=== PATIENT | female | born 1995 | race Caucasian/White ===

== ENCOUNTER → 2016-10-18 | Outpatient (REF) | payer OTHER | END | disposition home or self-care (01) | LOC: M LAB REF 12:41 | PROVIDERS: ATTEND Obstetrics & Gynecology | DX: Z12.4 Encounter for screening for malignant neoplasm of cervix (principal) ==

== ENCOUNTER 2016-11-13 21:15 | Emergency (ER) | payer OTHER ==
[2016-11-13] MEDS ORDERED: KETOROLAC 30 MG/ML VIAL (J1885) As Ordered ONE (22:25)
[2016-11-13] MEDS ORDERED: METOCLOPRAMIDE INJ 10MG/2ML VIAL (J2765) As Ordered ONE (22:25)
[2016-11-13] MEDS ORDERED: diphenhydrAMINE INJ 50MG/ML VIAL (J1200) As Ordered ONE (22:25)
--- NOTE | 2016-11-14 | REPUSA ---
CLINICAL HISTORY: Headaches. TECHNIQUE: Multiple axial brain CT scan sections were obtained from base to vertex without contrast a dministration. COMMENTS: The study shows normal configuration of sella turcica. There are no intra or extra-axial collections. There is no mass effect or midline shift. There is no evidence of hematoma formation. No hydrocephal us is present. No abnormal calcifications are noted. No significant abnormalities are seen either in the posterior fossa or supratentorial compartment. The sinuses and mastoid air cells are patent. IMPRESSION: No evidence of acute intracranial pathology. Thank you for your kind referral of this patient.
--- NOTE | 2016-11-14 00:55 | EDDOCDS ---
Physician Documentation [facility] Name: Adalberto Alexander Age: 21 yrs Sex: Female : 1995 Arrival Date: 11/13/2016 Time: 21:15 Bed 4 Private MD: Beth Ramírez Disposition: 11/14/16 00:42 Discharged to Home/Self Care. Impression: Migraine without aura, not intractable. - Condition is Stable. - Discharge Instructions: Migraine Headache. - Medication Reconciliation, Local Pharmacy Hours form. - Follow up: Malcolm Flowers; When: Call to arrange an appointment; Reason: Continuance of care. - Problem is an acute exacerbation. - Symptoms have improved. Historical: - Allergies: BACLOFEN; Duloxetine; Lyrica; Pennsaid; Fluconazole; Imitrex; SUMATRIPTAN; rizatriptan; Doxycycline; Depakote; clarithromycin; Miconazole Nitrate; Savella; brie cheese; - Home Meds: 1. 5000 NF toothpaste 2. medroxyprogesterone 10 mg Oral tab 1 tab once daily 1 daily for 10 days in a month 3. Vitamin D Oral weekly 4. allergy shots 5. cetirizine 10 mg oral tab 1 tab once daily 6. montelukast 10 mg oral tab 1 tab once daily 7. Miralax 17 gram Oral pwpk 1 packet once daily - PMHx: Fibromyalgia; Seasonal Allergies; Glaucoma; IBS; - PSHx: wisdom teeth; Laparoscopy; Tonsillectomy; - Social history: Smoking status: Patient states was never smoker of tobacco. No barriers to communication noted, The patient speaks fluent Greenlandic. - Family history: Father has/had cancer, brain tumor . - : The pt / caregiver states he / she is not on anticoagulants. Home medication list is obtained from the patient. - Exposure Risk Screening:: None identified. Vital Signs: 11/13 21:18 BP 108 / 67; Pulse 100; Resp 18 S; Temp 98.1(O); Pulse Ox 98% on R/A; Weight 54.43 kg / gr2 120 lbs (R); Height 5 ft. 4 in. (162.56 cm) (R); Pain 5/10; 22:18 BP 105 / 59 (auto/); mlc 22:18 Pulse 86 MON; Pulse Ox 99% ; mlc 22:33 BP 113 / 63 (auto/); mlc 22:33 Pulse 80 MON; Pulse Ox 99% ; mlc 22:47 Pulse 80 MON; Pulse Ox 98% ; mlc 22:48 BP 108 / 61 (auto/); mlc 23:03 BP 107 / 59 (auto/); mlc 23:04 Pulse 86 MON; Pulse Ox 99% ; mlc 23:18 BP 91 / 54 (auto/); mlc 23:19 Pulse 80 MON; Pulse Ox 99% ; mlc 23:33 BP 93 / 53 (auto/); mlc 23:34 Pulse 76 MON; Pulse Ox 97% ; mlc 23:48 BP 97 / 54 (auto/); mlc 23:49 Pulse 78 MON; Pulse Ox 97% ; mlc 11/14 00:18 BP 92 / 55 (auto/); mlc 00:19 Pulse 78 MON; Pulse Ox 97% ; mlc 00:31 Pulse 78 MON; Pulse Ox 97% ; mlc 00:50 BP 93 / 50 LA Supine (auto/reg); Pulse 82 MON; Resp 18 S; Temp 97.7; Pulse Ox 98% on cln R/A; Pain 0/10; 11/13 21:18 Body Mass Index 20.60 (54.43 kg, 162.56 cm) gr2 MDM: 11/13 22:14 IV Saline Lock ordered. mm11 22:14 ketorolac 30 mg IVP once ordered. mm11 22:14 diphenhydrAMINE 25 mg IVP once ordered. mm11 22:14 Metoclopramide 10 mg IV at 40 mg/hr once over 15 mins ordered. mm11 22:14 NS 0.9% 1000 ml IV at bolus once ordered. mm11 22:16 CT Head Without Contrast Ordered. EDMS 22:30 Financial registration complete. mickey 22:45 [facility] [place] Agreement was scanned into [employer] and attached to record. gjb Administered Medications: 22:48 Drug: ketorolac 30 mg [ketorolac 30 mg/mL (1 mL) injection solution (1 mL)] Route: IVP; mlc Site: left antecubital; 23:20 Follow up: Response: Pain is decreased mlc 22:48 Drug: diphenhydrAMINE 25 mg [diphenhydramine 50 mg/mL injection solution (0.5 mL)] mlc Route: IVP; Site: left antecubital; 23:21 Follow up: Response: No Adverse Reaction mlc 22:48 Drug: Metoclopramide 10 mg [metoclopramide 5 mg/mL injection solution] Route: IV; Rate: mlc 40 mg/hr; Infused Over: 15 mins; Site: left antecubital; 23:20 Follow up: IV Status: Completed infusion mlc 22:48 Drug: NS 0.9% 1000 ml [sodium chloride 0.9 % intravenous solution] Route: IV; Rate: mlc bolus; Site: left antecubital; Signatures: Dispatcher MedHost EDOswald Alexander, DO mm11 Marla Hightower RN RN mlc Fulton, Amber, RN RN af2 Sonia Corbin The chart was reviewed and I authenticate all verbal orders and agree with the evaluation and treatment provided.Attachments: 22:45 [facility] Payment Agreement mickey [email or web address]
--- NOTE | 2016-11-14 00:55 | EDDOCDS ---
Nurse's Notes [facility] Name: Adalberto Alexander Age: 21 yrs Sex: Female : 1995 Arrival Date: 11/13/2016 Time: 21:15 Bed 4 Private MD: Beth Ramírez Diagnosis: Migraine without aura, not intractable Presentation: 11/13 21:35 Presenting complaint: Patient states: headache all day, lightheaded, dizziness, nausea, af2 confusion, slurred speech, "feels like a buzz," seems like a blur. The patient has a family history of subarachnoid hemhorrage. The charge nurse has been notified. Adult Sepsis Screening: The patient does not have new or worsening altered mentation. Patient's respiratory rate is less than 22. Systolic blood pressure is greater than 100. Patient has a qSOFA score of 0- Negative Sepsis Screen. Suicide/Homicide risk assessment- the patient denies having any suicidal and/or homicidal ideations and does not present with any other emotional, behavioral or mental health complaints. Status: Patient is not a cash register servicer or dependent. Transition of care: patient was not received from another setting of care. 21:35 Acuity: WILLIAM Level 3 af2 21:35 Method Of Arrival: Walkin/Carried/Asstd af2 Triage Assessment: 21:44 Headache History: A change in the character of the headache the patient is experiencing af2 has occured. General: Appears in no apparent distress, Behavior is cooperative. Pain: Location: scalp Pain currently is 5 out of 10 on a pain scale. Pt Declines HIV testing. Neurological: Level of Consciousness is awake, alert, obeys commands, Oriented to person, place, time. Historical: - Allergies: BACLOFEN; Duloxetine; Lyrica; Pennsaid; Fluconazole; Imitrex; SUMATRIPTAN; rizatriptan; Doxycycline; Depakote; clarithromycin; Miconazole Nitrate; Savella; brie cheese; - Home Meds: 1. 5000 NF toothpaste 2. medroxyprogesterone 10 mg Oral tab 1 tab once daily 1 daily for 10 days in a month 3. Vitamin D Oral weekly 4. allergy shots 5. cetirizine 10 mg oral tab 1 tab once daily 6. montelukast 10 mg oral tab 1 tab once daily 7. Miralax 17 gram Oral pwpk 1 packet once daily - PMHx: Fibromyalgia; Seasonal Allergies; Glaucoma; IBS; - PSHx: wisdom teeth; Laparoscopy; Tonsillectomy; - Social history: Smoking status: Patient states was never smoker of tobacco. No barriers to communication noted, The patient speaks fluent Uzbek. - Family history: Father has/had cancer, brain tumor . - : The pt / caregiver states he / she is not on anticoagulants. Home medication list is obtained from the patient. - Exposure Risk Screening:: None identified. Screenin:18 Screening information is obtained from the patient. Fall risk: No risks identified. mlc Assistance ADL's: requires no assistance with activities of daily living. Abuse/DV Screen: The patient / caregiver reports he/she is: not in a situation that causes fear, pain or injury. Nutritional screening: No deficits noted. Advance Directives: Currently, there is no health care proxy. home support is adequate. Assessment: 22:14 General: Appears in no apparent distress, comfortable, Behavior is cooperative. Pain: mlc Location: left frontal area, left side of the back of head, left side of forehead, left temporal area and left occipital area Pain currently is 5 out of 10 on a pain scale. Pain: Pain does not radiate. Neurological: Level of Consciousness is awake, alert, obeys commands, Oriented to person, place, time, pt occasionally slow to answer questions but is answering them appropriately. . Cardiovascular: Heart tones S1 S2 present. Cardiovascular: Capillary refill < 3 seconds Rhythm is regular. Respiratory: Airway is patent Respiratory effort is even, unlabored, Respiratory pattern is regular, Breath sounds are clear bilaterally. GI: Abdomen is flat, Bowel sounds present X 4 quads. Abd is soft and non tender X 4 quads. Derm: Skin is normal. 22:15 Neurological: Moves all extremities. Speech is normal, Facial symmetry appears normal, mlc Pupils are PERRLA. 22:48 Reassessment: Patient appears in no apparent distress at this time. pt medicated per mlc order. IV fluids infusing per order. 23:21 Reassessment: Patient appears in no apparent distress at this time. Patient denies pain mlc at this time. Patient states feeling better. Patient states symptoms have improved. 11/14 00:32 General: Appears in no apparent distress, comfortable, to be sleeping. Respiratory: mlc Airway is patent Respiratory effort is even, unlabored, Respiratory pattern is regular. 00:54 General: Appears in no apparent distress, comfortable, Behavior is appropriate for age, mlc cooperative. Pain: Denies pain. Neurological: Level of Consciousness is awake, alert, Oriented to person, place, time. Respiratory: Airway is patent Respiratory effort is even, unlabored, Respiratory pattern is regular. Derm: Skin is normal. Vital Signs: 11/13 21:18 BP 108 / 67; Pulse 100; Resp 18 S; Temp 98.1(O); Pulse Ox 98% on R/A; Weight 54.43 kg gr2 (R); Height 5 ft. 4 in. (162.56 cm) (R); Pain 5/10; 22:18 BP 105 / 59 (auto/); mlc 22:18 Pulse 86 MON; Pulse Ox 99% ; mlc 22:33 BP 113 / 63 (auto/); mlc 22:33 Pulse 80 MON; Pulse Ox 99% ; mlc 22:47 Pulse 80 MON; Pulse Ox 98% ; mlc 22:48 BP 108 / 61 (auto/); mlc 23:03 BP 107 / 59 (auto/); mlc 23:04 Pulse 86 MON; Pulse Ox 99% ; mlc 23:18 BP 91 / 54 (auto/); mlc 23:19 Pulse 80 MON; Pulse Ox 99% ; mlc 23:33 BP 93 / 53 (auto/); mlc 23:34 Pulse 76 MON; Pulse Ox 97% ; mlc 23:48 BP 97 / 54 (auto/); mlc 23:49 Pulse 78 MON; Pulse Ox 97% ; mlc 11/14 00:18 BP 92 / 55 (auto/); mlc 00:19 Pulse 78 MON; Pulse Ox 97% ; mlc 00:31 Pulse 78 MON; Pulse Ox 97% ; mlc 00:50 BP 93 / 50 LA Supine (auto/reg); Pulse 82 MON; Resp 18 S; Temp 97.7; Pulse Ox 98% on cln R/A; Pain 0/10; 11/13 21:18 Body Mass Index 20.60 (54.43 kg, 162.56 cm) gr2 Vitals: 11/13 21:18 Log In Time: November 13, 2016 at 21:18. gr2 ED Course: 21:17 Patient visited by Gualberto Munguia. gr2 21:17 Patient moved to Waiting gr2 21:18 Beth Ramírez is Private Physician. gr2 21:20 Patient visited by Gualberto Munguia. gr2 21:20 Patient moved to Pre RCE gr2 21:38 Triage Initiated af2 21:45 Patient visited by Celia Vaca RN. af2 21:45 Marla Hightower RN is Primary Nurse. af2 21:45 Patient moved to 4 af2 21:49 Patient visited by Megan Vincent PCA. zachary 21:49 Pt greeted and oriented to ED. Patient advised of names of staff involved in care, zachary location of call [place], wait times and NPO status. Accompanied by Family Member, Patient has correct armband on for positive identification. Placed in gown. Bed in low position. Call light in reach. environmental monitoring technician on. Pulse ox on. NIBP on. 21:58 Oswald Zayas DO is Attending Physician. mm11 21:58 Patient visited by Oswald Zayas DO. mm11 22:14 Patient visited by Oswald Zayas DO. mm11 22:16 Patient visited by Marla Hightower RN. mlc 22:45 [facility] Payment Agreement was scanned into [employer] and attached to record. gjb 22:49 The patient / caregiver is instructed regarding the plan of care and ED course. mlc 22:49 Inserted saline lock: 20 gauge in left antecubital area The patient tolerated the mlc procedure well. 22:50 Patient visited by Marla Hightower RN. mlc 23:21 Patient visited by Marla Hightower RN. mlc 11/14 00:25 CT Head Without Contrast Returned. EDMS 00:33 Patient visited by Marla Hightower RN. mlc 00:41 Malcolm Flowers is Referral Physician. mm11 00:51 Patient visited by Lu Solis PCA. cln 00:54 Discontinued IV lock intact, bleeding controlled, pressure dressing applied, No mlc redness/swelling at site. No procedures done that require assistance. Administered Medications: 11/13 22:48 Drug: ketorolac 30 mg [ketorolac 30 mg/mL (1 mL) injection solution (1 mL)] Route: IVP; mlc Site: left antecubital; 23:20 Follow up: Response: Pain is decreased mlc 22:48 Drug: diphenhydrAMINE 25 mg [diphenhydramine 50 mg/mL injection solution (0.5 mL)] [facility] Route: IVP; Site: left antecubital; 23:21 Follow up: Response: No Adverse Reaction [facility] 22:48 Drug: Metoclopramide 10 mg [metoclopramide 5 mg/mL injection solution] Route: IV; Rate: mlc 40 mg/hr; Infused Over: 15 mins; Site: left antecubital; 23:20 Follow up: IV Status: Completed infusion [facility] 22:48 Drug: NS 0.9% 1000 ml [sodium chloride 0.9 % intravenous solution] Route: IV; Rate: mlc bolus; Site: left antecubital; Order Results: Radiology Order: CT Head Without Contrast Test: CT Head Without Contrast REASON FOR EXAMINATION: HEADACHE; ; CLINICAL HISTORY: Headaches.; TECHNIQUE: Multiple axial brain CT scan sections were obtained from base to vertex without contrast a; dministration.; COMMENTS:; The study shows normal configuration of sella turcica. There are no intra or extra-axial collections.; There is no mass effect or midline shift. There is no evidence of hematoma formation. No hydrocephal; us is present. No abnormal calcifications are noted.; No significant abnormalities are seen either in the posterior fossa or supratentorial compartment.; The sinuses and mastoid air cells are patent.; IMPRESSION:; No evidence of acute intracranial pathology.; Thank you for your kind referral of this patient.; ; Outcome: 22:50 CT Study completed. [facility] 11/14 00:42 Discharge ordered by Provider. mm11 00:54 Discharge Assessment: Patient awake, alert and oriented x 3. No cognitive and/or mlc functional deficits noted. Patient verbalized understanding of disposition instructions. patient administered narcotics - no. The following High Risk Discharge criteria are identified: None. Discharged to home ambulatory, with parent. Condition: good Condition: stable Condition: improved. Discharge instructions given to patient, Instructed on discharge instructions, follow up and referral plans. Demonstrated understanding of instructions, Pt was receptive of discharge instructions/ teaching. Property sent home with patient. 00:55 Patient left the ED. [facility] Signatures: Dispatcher MedHost EDOswald Alexander DO DO mm11 Megan Vincent, Manuelito Avaloslee gr2 Marla Hightower,RN RN mlc Celia Vaca,SHIV RN af2 Sonia Corbin, Lu, SOFTWARE VERIFICATION ENGINEER SOFTWARE VERIFICATION ENGINEER cln MTDD
--- NOTE | 2016-11-16 01:55 | EDDOCDS ---
Physician Documentation [facility] Name: Adalberto Alexander Age: 21 yrs Sex: Female : 1995 Arrival Date: 11/13/2016 Time: 21:15 Bed 4 Private MD: Beth Ramírez Disposition: 11/14/16 00:42 Discharged to Home/Self Care. Impression: Migraine without aura, not intractable. - Condition is Stable. - Discharge Instructions: Migraine Headache. - Medication Reconciliation, Local Pharmacy Hours form. - Follow up: Malcolm Flowers; When: Call to arrange an appointment; Reason: Continuance of care. - Problem is an acute exacerbation. - Symptoms have improved. Historical: - Allergies: BACLOFEN; Duloxetine; Lyrica; Pennsaid; Fluconazole; Imitrex; SUMATRIPTAN; rizatriptan; Doxycycline; Depakote; clarithromycin; Miconazole Nitrate; Savella; brie cheese; - Home Meds: 1. 5000 NF toothpaste 2. medroxyprogesterone 10 mg Oral tab 1 tab once daily 1 daily for 10 days in a month 3. Vitamin D Oral weekly 4. allergy shots 5. cetirizine 10 mg oral tab 1 tab once daily 6. montelukast 10 mg oral tab 1 tab once daily 7. Miralax 17 gram Oral pwpk 1 packet once daily - PMHx: Fibromyalgia; Seasonal Allergies; Glaucoma; IBS; - PSHx: wisdom teeth; Laparoscopy; Tonsillectomy; - Social history: Smoking status: Patient states was never smoker of tobacco. No barriers to communication noted, The patient speaks fluent Tamazight. - Family history: Father has/had cancer, brain tumor . - : The pt / caregiver states he / she is not on anticoagulants. Home medication list is obtained from the patient. - Exposure Risk Screening:: None identified. Vital Signs: 11/13 21:18 BP 108 / 67; Pulse 100; Resp 18 S; Temp 98.1(O); Pulse Ox 98% on R/A; Weight 54.43 kg / gr2 120 lbs (R); Height 5 ft. 4 in. (162.56 cm) (R); Pain 5/10; 22:18 BP 105 / 59 (auto/); mlc 22:18 Pulse 86 MON; Pulse Ox 99% ; mlc 22:33 BP 113 / 63 (auto/); mlc 22:33 Pulse 80 MON; Pulse Ox 99% ; mlc 22:47 Pulse 80 MON; Pulse Ox 98% ; mlc 22:48 BP 108 / 61 (auto/); mlc 23:03 BP 107 / 59 (auto/); mlc 23:04 Pulse 86 MON; Pulse Ox 99% ; mlc 23:18 BP 91 / 54 (auto/); mlc 23:19 Pulse 80 MON; Pulse Ox 99% ; mlc 23:33 BP 93 / 53 (auto/); mlc 23:34 Pulse 76 MON; Pulse Ox 97% ; mlc 23:48 BP 97 / 54 (auto/); mlc 23:49 Pulse 78 MON; Pulse Ox 97% ; mlc 11/14 00:18 BP 92 / 55 (auto/); mlc 00:19 Pulse 78 MON; Pulse Ox 97% ; mlc 00:31 Pulse 78 MON; Pulse Ox 97% ; mlc 00:50 BP 93 / 50 LA Supine (auto/reg); Pulse 82 MON; Resp 18 S; Temp 97.7; Pulse Ox 98% on cln R/A; Pain 0/10; 11/13 21:18 Body Mass Index 20.60 (54.43 kg, 162.56 cm) gr2 MDM: 11/13 22:14 IV Saline Lock ordered. mm11 22:14 ketorolac 30 mg IVP once ordered. mm11 22:14 diphenhydrAMINE 25 mg IVP once ordered. mm11 22:14 Metoclopramide 10 mg IV at 40 mg/hr once over 15 mins ordered. mm11 22:14 NS 0.9% 1000 ml IV at bolus once ordered. mm11 22:16 CT Head Without Contrast Ordered. EDMS 22:30 Financial registration complete. gjb 22:45 [facility] [place] Payment Agreement was scanned into [employer] and attached to record. [facility] 11/14 11:37 T-Sheet-- Draft Copy was scanned into [employer] and attached to record. gb Administered Medications: 11/13 22:48 Drug: ketorolac 30 mg [ketorolac 30 mg/mL (1 mL) injection solution (1 mL)] Route: IVP; mlc Site: left antecubital; 23:20 Follow up: Response: Pain is decreased [facility] [place] 22:48 Drug: diphenhydrAMINE 25 mg [diphenhydramine 50 mg/mL injection solution (0.5 mL)] mlc Route: IVP; Site: left antecubital; 23:21 Follow up: Response: No Adverse Reaction mlc 22:48 Drug: Metoclopramide 10 mg [metoclopramide 5 mg/mL injection solution] Route: IV; Rate: mlc 40 mg/hr; Infused Over: 15 mins; Site: left antecubital; 23:20 Follow up: IV Status: Completed infusion mlc 22:48 Drug: NS 0.9% 1000 ml [sodium chloride 0.9 % intravenous solution] Route: IV; Rate: mlc bolus; Site: left antecubital; Signatures: Dispatcher MedHost EDNJ Iris Potts, Nikolai Reg gb Oswald Zayas, DO mm11 Marla Hightower RN RN mlc Celia Vaca RN RN af2 Sonia Corbin The chart was reviewed and I authenticate all verbal orders and agree with the evaluation and treatment provided.Attachments: 22:45 [facility] Payment Agreement mickey 11/14 11:37 T-Sheet-- Draft Copy Chart Complete MTDD
--- NOTE | 2016-11-16 01:55 | EDDOCDS ---
Nurse's Notes [facility] Name: Adalberto Alexander Age: 21 yrs Sex: Female : 1995 Arrival Date: 11/13/2016 Time: 21:15 Bed 4 Private MD: Beth Ramírez Diagnosis: Migraine without aura, not intractable Presentation: 11/13 21:35 Presenting complaint: Patient states: headache all day, lightheaded, dizziness, nausea, af2 confusion, slurred speech, "feels like a buzz," seems like a blur. The patient has a family history of subarachnoid hemhorrage. The charge nurse has been notified. Adult Sepsis Screening: The patient does not have new or worsening altered mentation. Patient's respiratory rate is less than 22. Systolic blood pressure is greater than 100. Patient has a qSOFA score of 0- Negative Sepsis Screen. Suicide/Homicide risk assessment- the patient denies having any suicidal and/or homicidal ideations and does not present with any other emotional, behavioral or mental health complaints. Status: Patient is not a technical services coordinator or dependent. Transition of care: patient was not received from another setting of care. 21:35 Acuity: WILLIAM Level 3 af2 21:35 Method Of Arrival: Walkin/Carried/Asstd af2 Triage Assessment: 21:44 Headache History: A change in the character of the headache the patient is experiencing af2 has occured. General: Appears in no apparent distress, Behavior is cooperative. Pain: Location: scalp Pain currently is 5 out of 10 on a pain scale. Pt Declines HIV testing. Neurological: Level of Consciousness is awake, alert, obeys commands, Oriented to person, place, time. Historical: - Allergies: BACLOFEN; Duloxetine; Lyrica; Pennsaid; Fluconazole; Imitrex; SUMATRIPTAN; rizatriptan; Doxycycline; Depakote; clarithromycin; Miconazole Nitrate; Savella; brie cheese; - Home Meds: 1. 5000 NF toothpaste 2. medroxyprogesterone 10 mg Oral tab 1 tab once daily 1 daily for 10 days in a month 3. Vitamin D Oral weekly 4. allergy shots 5. cetirizine 10 mg oral tab 1 tab once daily 6. montelukast 10 mg oral tab 1 tab once daily 7. Miralax 17 gram Oral pwpk 1 packet once daily - PMHx: Fibromyalgia; Seasonal Allergies; Glaucoma; IBS; - PSHx: wisdom teeth; Laparoscopy; Tonsillectomy; - Social history: Smoking status: Patient states was never smoker of tobacco. No barriers to communication noted, The patient speaks fluent Barbadian. - Family history: Father has/had cancer, brain tumor . - : The pt / caregiver states he / she is not on anticoagulants. Home medication list is obtained from the patient. - Exposure Risk Screening:: None identified. Screenin:18 Screening information is obtained from the patient. Fall risk: No risks identified. mlc Assistance ADL's: requires no assistance with activities of daily living. Abuse/DV Screen: The patient / caregiver reports he/she is: not in a situation that causes fear, pain or injury. Nutritional screening: No deficits noted. Advance Directives: Currently, there is no health care proxy. home support is adequate. Assessment: 22:14 General: Appears in no apparent distress, comfortable, Behavior is cooperative. Pain: mlc Location: left frontal area, left side of the back of head, left side of forehead, left temporal area and left occipital area Pain currently is 5 out of 10 on a pain scale. Pain: Pain does not radiate. Neurological: Level of Consciousness is awake, alert, obeys commands, Oriented to person, place, time, pt occasionally slow to answer questions but is answering them appropriately. . Cardiovascular: Heart tones S1 S2 present. Cardiovascular: Capillary refill < 3 seconds Rhythm is regular. Respiratory: Airway is patent Respiratory effort is even, unlabored, Respiratory pattern is regular, Breath sounds are clear bilaterally. GI: Abdomen is flat, Bowel sounds present X 4 quads. Abd is soft and non tender X 4 quads. Derm: Skin is normal. 22:15 Neurological: Moves all extremities. Speech is normal, Facial symmetry appears normal, mlc Pupils are PERRLA. 22:48 Reassessment: Patient appears in no apparent distress at this time. pt medicated per mlc order. IV fluids infusing per order. 23:21 Reassessment: Patient appears in no apparent distress at this time. Patient denies pain mlc at this time. Patient states feeling better. Patient states symptoms have improved. 11/14 00:32 General: Appears in no apparent distress, comfortable, to be sleeping. Respiratory: mlc Airway is patent Respiratory effort is even, unlabored, Respiratory pattern is regular. 00:54 General: Appears in no apparent distress, comfortable, Behavior is appropriate for age, mlc cooperative. Pain: Denies pain. Neurological: Level of Consciousness is awake, alert, Oriented to person, place, time. Respiratory: Airway is patent Respiratory effort is even, unlabored, Respiratory pattern is regular. Derm: Skin is normal. Vital Signs: 11/13 21:18 BP 108 / 67; Pulse 100; Resp 18 S; Temp 98.1(O); Pulse Ox 98% on R/A; Weight 54.43 kg gr2 (R); Height 5 ft. 4 in. (162.56 cm) (R); Pain 5/10; 22:18 BP 105 / 59 (auto/); mlc 22:18 Pulse 86 MON; Pulse Ox 99% ; mlc 22:33 BP 113 / 63 (auto/); mlc 22:33 Pulse 80 MON; Pulse Ox 99% ; mlc 22:47 Pulse 80 MON; Pulse Ox 98% ; mlc 22:48 BP 108 / 61 (auto/); mlc 23:03 BP 107 / 59 (auto/); mlc 23:04 Pulse 86 MON; Pulse Ox 99% ; mlc 23:18 BP 91 / 54 (auto/); mlc 23:19 Pulse 80 MON; Pulse Ox 99% ; mlc 23:33 BP 93 / 53 (auto/); mlc 23:34 Pulse 76 MON; Pulse Ox 97% ; mlc 23:48 BP 97 / 54 (auto/); mlc 23:49 Pulse 78 MON; Pulse Ox 97% ; mlc 11/14 00:18 BP 92 / 55 (auto/); mlc 00:19 Pulse 78 MON; Pulse Ox 97% ; mlc 00:31 Pulse 78 MON; Pulse Ox 97% ; mlc 00:50 BP 93 / 50 LA Supine (auto/reg); Pulse 82 MON; Resp 18 S; Temp 97.7; Pulse Ox 98% on cln R/A; Pain 0/10; 11/13 21:18 Body Mass Index 20.60 (54.43 kg, 162.56 cm) gr2 Vitals: 11/13 21:18 Log In Time: November 13, 2016 at 21:18. gr2 ED Course: 21:17 Patient visited by Gualberto Munguia. gr2 21:17 Patient moved to Waiting gr2 21:18 Beth Ramírez is Private Physician. gr2 21:20 Patient visited by Gualberto Munguia. gr2 21:20 Patient moved to Pre RCE gr2 21:38 Triage Initiated af2 21:45 Patient visited by Celia VacaRN. af2 21:45 Marla Hightower RN is Primary Nurse. af2 21:45 Patient moved to 4 af2 21:49 Patient visited by Megan Vincent PCA. zachary 21:49 Pt greeted and oriented to ED. Patient advised of names of staff involved in care, zachary location of call [place], wait times and NPO status. Accompanied by Family Member, Patient has correct armband on for positive identification. Placed in gown. Bed in low position. Call light in reach. surveillance monitor on. Pulse ox on. NIBP on. 21:58 Oswald Zayas DO is Attending Physician. mm11 21:58 Patient visited by Oswald Zayas DO. mm11 22:14 Patient visited by Oswald Zayas DO. mm11 22:16 Patient visited by Marla Hightower RN. mlc 22:45 [facility] Payment Agreement was scanned into [employer] and attached to record. gjb 22:49 The patient / caregiver is instructed regarding the plan of care and ED course. mlc 22:49 Inserted saline lock: 20 gauge in left antecubital area The patient tolerated the mlc procedure well. 22:50 Patient visited by Marla Hightower RN. mlc 23:21 Patient visited by Marla Hightower RN. mlc 11/14 00:25 CT Head Without Contrast Returned. EDMS 00:33 Patient visited by Marla Hightower RN. mlc 00:41 Malcolm Flowers is Referral Physician. mm11 00:51 Patient visited by Lu Solis, DENIA. cln 00:54 Discontinued IV lock intact, bleeding controlled, pressure dressing applied, No mlc redness/swelling at site. No procedures done that require assistance. 11:37 T-Sheet-- Draft Copy was scanned into [employer] and attached to record. gb Administered Medications: 11/13 22:48 Drug: ketorolac 30 mg [ketorolac 30 mg/mL (1 mL) injection solution (1 mL)] Route: IVP; mlc Site: left antecubital; 23:20 Follow up: Response: Pain is decreased [facility] [place]:48 Drug: diphenhydrAMINE 25 mg [diphenhydramine 50 mg/mL injection solution (0.5 mL)] mlc Route: IVP; Site: left antecubital; 23:21 Follow up: Response: No Adverse Reaction [facility] 22:48 Drug: Metoclopramide 10 mg [metoclopramide 5 mg/mL injection solution] Route: IV; Rate: mlc 40 mg/hr; Infused Over: 15 mins; Site: left antecubital; 23:20 Follow up: IV Status: Completed infusion [facility] 22:48 Drug: NS 0.9% 1000 ml [sodium chloride 0.9 % intravenous solution] Route: IV; Rate: mlc bolus; Site: left antecubital; Order Results: Radiology Order: CT Head Without Contrast Test: CT Head Without Contrast REASON FOR EXAMINATION: HEADACHE; ; CLINICAL HISTORY: Headaches.; TECHNIQUE: Multiple axial brain CT scan sections were obtained from base to vertex without contrast a; dministration.; COMMENTS:; The study shows normal configuration of sella turcica. There are no intra or extra-axial collections.; There is no mass effect or midline shift. There is no evidence of hematoma formation. No hydrocephal; us is present. No abnormal calcifications are noted.; No significant abnormalities are seen either in the posterior fossa or supratentorial compartment.; The sinuses and mastoid air cells are patent.; IMPRESSION:; No evidence of acute intracranial pathology.; Thank you for your kind referral of this patient.; ; Outcome: 22:50 CT Study completed. [facility] 11/14 00:42 Discharge ordered by Provider. mm11 00:54 Discharge Assessment: Patient awake, alert and oriented x 3. No cognitive and/or mlc functional deficits noted. Patient verbalized understanding of disposition instructions. patient administered narcotics - no. The following High Risk Discharge criteria are identified: None. Discharged to home ambulatory, with parent. Condition: good Condition: stable Condition: improved. Discharge instructions given to patient, Instructed on discharge instructions, follow up and referral plans. Demonstrated understanding of instructions, Pt was receptive of discharge instructions/ teaching. Property sent home with patient. 00:55 Patient left the ED. [facility] Signatures: Dispatcher [facility], Iris, Reg Reg gb Marquez, Oswald, DO DO mm11 Carlton, Megan, ENVIRONMENTAL CONSTRUCTION ENGINEER ENVIRONMENTAL CONSTRUCTION ENGINEER zachary Gualberto Munguia gr2 Marla Hightower,SHIV RN mlc Celia Vaca RN RN af2 Sonia Corbinb Irma, Lu, ENVIRONMENTAL CONSTRUCTION ENGINEER ENVIRONMENTAL CONSTRUCTION ENGINEER cln Chart Complete MTDD
--- NOTE | 2016-11-16 01:55 | EDDOCDS ---
Physician Documentation [facility] Name: Adalberto Alexander Age: 21 yrs Sex: Female : 1995 Arrival Date: 11/13/2016 Time: 21:15 Bed 4 Private MD: Beth Ramírez Disposition: 11/14/16 00:42 Discharged to Home/Self Care. Impression: Migraine without aura, not intractable. - Condition is Stable. - Discharge Instructions: Migraine Headache. - Medication Reconciliation, Local Pharmacy Hours form. - Follow up: Malcolm Flowers; When: Call to arrange an appointment; Reason: Continuance of care. - Problem is an acute exacerbation. - Symptoms have improved. Historical: - Allergies: BACLOFEN; Duloxetine; Lyrica; Pennsaid; Fluconazole; Imitrex; SUMATRIPTAN; rizatriptan; Doxycycline; Depakote; clarithromycin; Miconazole Nitrate; Savella; brie cheese; - Home Meds: 1. 5000 NF toothpaste 2. medroxyprogesterone 10 mg Oral tab 1 tab once daily 1 daily for 10 days in a month 3. Vitamin D Oral weekly 4. allergy shots 5. cetirizine 10 mg oral tab 1 tab once daily 6. montelukast 10 mg oral tab 1 tab once daily 7. Miralax 17 gram Oral pwpk 1 packet once daily - PMHx: Fibromyalgia; Seasonal Allergies; Glaucoma; IBS; - PSHx: wisdom teeth; Laparoscopy; Tonsillectomy; - Social history: Smoking status: Patient states was never smoker of tobacco. No barriers to communication noted, The patient speaks fluent Uzbek. - Family history: Father has/had cancer, brain tumor . - : The pt / caregiver states he / she is not on anticoagulants. Home medication list is obtained from the patient. - Exposure Risk Screening:: None identified. Vital Signs: 11/13 21:18 BP 108 / 67; Pulse 100; Resp 18 S; Temp 98.1(O); Pulse Ox 98% on R/A; Weight 54.43 kg / gr2 120 lbs (R); Height 5 ft. 4 in. (162.56 cm) (R); Pain 5/10; 22:18 BP 105 / 59 (auto/); mlc 22:18 Pulse 86 MON; Pulse Ox 99% ; mlc 22:33 BP 113 / 63 (auto/); mlc 22:33 Pulse 80 MON; Pulse Ox 99% ; mlc 22:47 Pulse 80 MON; Pulse Ox 98% ; mlc 22:48 BP 108 / 61 (auto/); mlc 23:03 BP 107 / 59 (auto/); mlc 23:04 Pulse 86 MON; Pulse Ox 99% ; mlc 23:18 BP 91 / 54 (auto/); mlc 23:19 Pulse 80 MON; Pulse Ox 99% ; mlc 23:33 BP 93 / 53 (auto/); mlc 23:34 Pulse 76 MON; Pulse Ox 97% ; mlc 23:48 BP 97 / 54 (auto/); mlc 23:49 Pulse 78 MON; Pulse Ox 97% ; mlc 11/14 00:18 BP 92 / 55 (auto/); mlc 00:19 Pulse 78 MON; Pulse Ox 97% ; mlc 00:31 Pulse 78 MON; Pulse Ox 97% ; mlc 00:50 BP 93 / 50 LA Supine (auto/reg); Pulse 82 MON; Resp 18 S; Temp 97.7; Pulse Ox 98% on cln R/A; Pain 0/10; 11/13 21:18 Body Mass Index 20.60 (54.43 kg, 162.56 cm) gr2 MDM: 11/13 22:14 IV Saline Lock ordered. mm11 22:14 ketorolac 30 mg IVP once ordered. mm11 22:14 diphenhydrAMINE 25 mg IVP once ordered. mm11 22:14 Metoclopramide 10 mg IV at 40 mg/hr once over 15 mins ordered. mm11 22:14 NS 0.9% 1000 ml IV at bolus once ordered. mm11 22:16 CT Head Without Contrast Ordered. EDMS 22:30 Financial registration complete. gjb 22:45 [facility] Payment Agreement was scanned into [employer] and attached to record. [facility] 11/14 11:37 T-Sheet-- Draft Copy was scanned into [employer] and attached to record. gb Administered Medications: 11/13 22:48 Drug: ketorolac 30 mg [ketorolac 30 mg/mL (1 mL) injection solution (1 mL)] Route: IVP; mlc Site: left antecubital; 23:20 Follow up: Response: Pain is decreased [facility] [place]:48 Drug: diphenhydrAMINE 25 mg [diphenhydramine 50 mg/mL injection solution (0.5 mL)] mlc Route: IVP; Site: left antecubital; 23:21 Follow up: Response: No Adverse Reaction mlc 22:48 Drug: Metoclopramide 10 mg [metoclopramide 5 mg/mL injection solution] Route: IV; Rate: mlc 40 mg/hr; Infused Over: 15 mins; Site: left antecubital; 23:20 Follow up: IV Status: Completed infusion mlc 22:48 Drug: NS 0.9% 1000 ml [sodium chloride 0.9 % intravenous solution] Route: IV; Rate: mlc bolus; Site: left antecubital; Signatures: Dispatcher [employer] EDRI Iris Potts, Nikolai Reg gb Oswald Zayas, DO mm11 Marla Hightower RN RN mlc Celia Vaca RN RN af2 Sonia Corbin The chart was reviewed and I authenticate all verbal orders and agree with the evaluation and treatment provided.Attachments: 22:45 [facility] Payment Agreement mickey 11/14 11:37 T-Sheet-- Draft Copy Chart Complete MTDD
== END 2016-11-14 00:55 | disposition home or self-care (01) ==
LOC: M ED 21:15
DX: G43.909 Migraine, unspecified, not intractable, without status migrainosus (principal); M79.7 Fibromyalgia; K58.9 Irritable bowel syndrome, unspecified; H40.9 Unspecified glaucoma; Z79.899 Other long term (current) drug therapy; Z88.8 Allergy status to other drugs, medicaments and biological substances; Z88.1 Allergy status to other antibiotic agents; Z91.018 Allergy to other foods
CPT/HCPCS: 70450; 96365; 96375; 99285; J1200; J1885; J2765

== ENCOUNTER → 2017-05-31 | Outpatient (REF) | payer OTHER ==
[2017-05-31 22:34] LABS: CONTROL LINE UCG INT CTR LINE PRESENT
[2017-05-31 22:43] LABS: CALCIUM OXALATE CRYSTALS SMALL
== END ==
LOC: M LAB REF 22:21
PROVIDERS: ATTEND Physician Assistant
DX: N89.8 Other specified noninflammatory disorders of vagina (principal)

== ENCOUNTER → 2018-02-22 | Outpatient (CLI) | payer OTHER ==
[~2018-02-22] MED LIST: ISOVUE-370 76% 100ML VIAL (Q9967) As Ordered
== END ==
LOC: M RADPRO 12:09
DX: N97.1 Female infertility of tubal origin (principal)
CPT/HCPCS: 58340

== ENCOUNTER → 2018-03-29 | Outpatient (CLI) | payer OTHER | LOC: M PAIN 13:00 | DX: M12.9 Arthropathy, unspecified (principal); M79.7 Fibromyalgia; G89.29 Other chronic pain; F41.9 Anxiety disorder, unspecified; F32.9 Major depressive disorder, single episode, unspecified; G43.909 Migraine, unspecified, not intractable, without status migrainosus; Z79.899 Other long term (current) drug therapy; Z88.1 Allergy status to other antibiotic agents; Z88.8 Allergy status to other drugs, medicaments and biological substances; Z91.018 Allergy to other foods; Z86.59 Personal history of other mental and behavioral disorders; Z92.29 Personal history of other drug therapy | CPT/HCPCS: G0463 ==

== ENCOUNTER → 2018-07-01 | Outpatient (REF) | payer OTHER, MEDICAID ==
[2018-07-01 21:46] LABS: APPEARANCE, URINE HAZY (CLEAR); BACTERIA, URINE AUTO 1+ (NEGATIVE); BILIRUBIN, URINE AUTO NEGATIVE (NEGATIVE); BLOOD, URINE BLOOD 3+ (NEGATIVE); COLOR, URINE YELLOW (YELLOW); GLUCOSE, URINE (UA) AUTO NEGATIVE (NEGATIVE); KETONE, URINE AUTO NEGATIVE (NEGATIVE); LEUKOCYTE ESTERASE, URINE AUTO 2+ (NEGATIVE); NITRITE, URINE AUTO NEGATIVE (NEGATIVE); PROTEIN, URINE AUTO NEGATIVE (NEGATIVE); RBC, URINE AUTO 1 /HPF (0-3); SPECIFIC GRAVITY URINE AUTO 1.001 (1.002-1.035); SQUAMOUS EPITHELIAL CELL UR AU 0 /HPF (0-6); UROBILINOGEN, URINE AUTO 0.2 mg/dL (0.0-2.0); WBC, URINE AUTO 10 /HPF (0-3)
== END ==
LOC: M LAB REF 20:40
DX: N39.0 Urinary tract infection, site not specified (principal)

== ENCOUNTER → 2018-08-11 | Outpatient (CLI) | payer OTHER | LOC: M RAD 09:28 | DX: J34.2 Deviated nasal septum (principal); J32.9 Chronic sinusitis, unspecified | CPT/HCPCS: 70486 ==

== ENCOUNTER 2018-10-25 08:39 | Day surgery (SDC) | payer OTHER ==
[~2018-10-25] VITALS: Ht 162.6 cm; Wt 59.4 kg
[~2018-10-25 08:39] MED LIST changes: +BOTO10VL; +BUSP10TA PO; +CLIN1SOL EX; +CLON1TAB8 PO; +EPINEPHrine 1MG/ML INJ 30ML MD-VIAL As Ordered ONE; -ISOVUE-370 76% 100ML VIAL (Q9967) As Ordered; +KETO20TA PO; +LATA5OPD OD; +LETR2.5T2 PO; +LEVOTAB10 PO; +LIDOCAINE W/EPINEPHRINE 1% 20ML VIAL As Ordered ONE; +MECL-68 PO; +MEDR10TA PO; +METHYLENE BLUE 0.5% (5MG/ML) 10 ML AMP (PROVAYBLUE)(Q9968 PER 1MG) As Ordered ONE; +NIZO2SHA EX; +POLYPOW78 XX; +PRENTAB55 PO; +PREP1TAB3 PO; +RANI15TA PO; +SING5CHW23 PO; +SODIUM CHLORIDE 0.9% NASAL GEL 15GM (AYR) As Ordered ONE; +TRET0.1C19 EX; +XALA0.007 OU; +ZOFR4TAB14 PO; +ZYRT10CA PO; +dexameTHASONE 4 MG/ML 1ML VIAL (J1100) IV ONE
[2018-10-25] MEDS ORDERED: LR 1,000 ML IV ONE (09:00)
[2018-10-25 09:07] LABS: URINE PREG TEST NEGATIVE (NEGATIVE)
[2018-10-25] MEDS ORDERED: PROPOFOL 200 MG/20 ML VIAL As Ordered ONE (09:25)
[2018-10-25] MEDS ORDERED: LIDOCAINE 2% INJ 100 MG/5 ML SDV (FOR ANES.) As Ordered ONE (09:25)
[2018-10-25] MEDS ORDERED: ROCURONIUM BROMIDE 50 MG/5 ML VIAL As Ordered ONE (09:25)
[2018-10-25] MEDS ORDERED: MIDAZOLAM INJ 2 MG/2 ML VIAL (J2250) As Ordered ONE ×2 (09:25→11:10)
[2018-10-25] MEDS ORDERED: fentaNYL 100 MCG/2 ML INJECTION (J3010) As Ordered ONE (09:26)
[2018-10-25] MEDS ORDERED: dexameTHASONE 4 MG/ML 1ML VIAL (J1100) As Ordered ONE (10:16)
[2018-10-25] MEDS ORDERED: METOCLOPRAMIDE INJ 10MG/2ML VIAL (J2765) As Ordered ONE (10:27)
[2018-10-25] MEDS ORDERED: SUGAMMADEX SODIUM 500 MG/5 ML VIAL (BRIDION) As Ordered ONE (10:27)
[2018-10-25] MEDS ORDERED: ONDANSETRON 4MG/2ML VIAL (J2405) As Ordered ONE (10:27)
[2018-10-25] MEDS ORDERED: ePHEDrine SULFATE 25 MG/5 ML(5MG/ML) SYRINGE As Ordered ONE (10:48)
[2018-10-25] MEDS ORDERED: CIPRODEX OTIC SUSP 7.5ML As Ordered ONE (11:21)
[2018-10-25] MEDS ORDERED: PERCOCET 5MG/325MG TAB PO PRN (11:30)
[2018-10-25] MEDS ORDERED: ONDANSETRON 4MG/2ML VIAL (J2405) IV PRN (11:30)
[2018-10-25] MEDS ORDERED: METOCLOPRAMIDE INJ 10MG/2ML VIAL (J2765) IV PRN (11:30)
[2018-10-25] MEDS ORDERED: fentaNYL 100 MCG/2 ML INJECTION (J3010) IV PRN (11:30)
[2018-10-25] MEDS ORDERED: LR 1,000 ML IV SCH ×2 (11:30)
[2018-10-25 14:00] VITALS: BP 113/62
--- NOTE | 2018-10-26 22:20 | RO ---
DATE OF PROCEDURE: 10/25/2018 PREPROCEDURE DIAGNOSES: Deviated nasal septum and hypertrophied nasal turbinates. POSTPROCEDURE DIAGNOSES: Deviated nasal septum and hypertrophied nasal turbinates. OPERATIVE PROCEDURE: 1. Septoplasty. 2. Coblation of bilateral inferior nasal turbinates. SURGEON: Anton Macias MD UNDERWRITER MORTGAGE LOAN: ANESTHESIA: General. CLINICAL PREAMBLE. This 23-year-old woman presented to the office with history of chronic nasal congestion, worse on the right side. Physical examination revealed deviated nasal septum to the right side as well as hypertrophic nasal turbinates. Patient did not respond to medical therapy. As such surgery listed above have been discussed. Patient understood and consented to the procedure. DESCRIPTION OF PROCEDURE: Patient was identified in the preoperative holding and brought to the operating room in stable condition. In the supine position on the operating room table, the patient received general anesthesia followed by oral endotracheal intubation without incident. The patient was prepped and draped in the usual fashion for the procedure. Both sides of the nasal cavity were packed using pledgets soaked in 1:1000 epinephrine. After the waiting period, the pledgets were removed. The L-strut was palpated and found to be intact. The left nasal septum was infiltrated with 1% lidocaine with 1:100,000 epinephrine. Left hemitransfixion incision was made. Perichondrial and periosteal flap was developed. The bony cartilaginous junction was disarticulated. The deviated portion of the perpendicular plate and the vomer bone were resected. The maxillary crest was isolated and resected. Deviated portion of the nasal septal cartilage was also isolated and resected as well. At this time the nasal septum was returned to a midline position. The left hemitransfixion incision was closed using a #3-0 chromic suture. At this time, using the coblation device with the Turbinator wand set at 4 for coblation and 3 for coagulation, the right inferior nasal turbinate was coblated along the submucosal plane from the anterior surface to the posterior surface. The same procedure was then carried out to coblate the left inferior nasal turbinate as well. The turbinates were then malfractured. Complete hemostasis was observed at the end of the case. Hernandez splints were inserted into each nasal cavity and then secured anteriorly using #3-0 nylon suture. Sponge and instrument counts were correct at the end of the procedure. Estimated blood loss was approximately 20 mL. General anesthesia was reversed and the patient was extubated and brought to the recovery room in stable condition.
== END 2018-10-25 14:15 | disposition home or self-care (01) ==
LOC: M SDC 08:39
PROVIDERS: ATTEND Otolaryngology
DX: J34.2 Deviated nasal septum (principal); J34.3 Hypertrophy of nasal turbinates; K21.9 Gastro-esophageal reflux disease without esophagitis; M79.7 Fibromyalgia; F32.9 Major depressive disorder, single episode, unspecified; F41.9 Anxiety disorder, unspecified; J45.909 Unspecified asthma, uncomplicated; Z79.899 Other long term (current) drug therapy; Z88.0 Allergy status to penicillin; Z88.8 Allergy status to other drugs, medicaments and biological substances
CPT/HCPCS: 30140; 30520; 84703; 88300; J1100; J2250; J2405; J2765; J3010; Q9968

== ENCOUNTER → 2018-12-09 | Outpatient (CLI) | payer OTHER, MEDICAID ==
[~2018-12-09] MED LIST changes: -EPINEPHrine 1MG/ML INJ 30ML MD-VIAL As Ordered ONE; -LIDOCAINE W/EPINEPHRINE 1% 20ML VIAL As Ordered ONE; -METHYLENE BLUE 0.5% (5MG/ML) 10 ML AMP (PROVAYBLUE)(Q9968 PER 1MG) As Ordered ONE; -SODIUM CHLORIDE 0.9% NASAL GEL 15GM (AYR) As Ordered ONE; -dexameTHASONE 4 MG/ML 1ML VIAL (J1100) IV ONE
== END ==
LOC: M LAB 14:21
PROVIDERS: ATTEND Obstetrics & Gynecology
DX: N97.0 Female infertility associated with anovulation (principal)

== ENCOUNTER 2019-02-18 18:48 | Emergency (ER) | payer OTHER ==
[~2019-02-18] VITALS: Ht 162.6 cm; Wt 64.4 kg
[~2019-02-18 18:48] MED LIST changes: +LATA0.0013 OD; -LATA5OPD OD
[2019-02-18] MEDS ORDERED: BUSP30TA (18:56)
[2019-02-18] MEDS ORDERED: MONT10TA2 (18:56)
[2019-02-18] MEDS ORDERED: PRAZ1CAP (18:56)
[2019-02-18] MEDS ORDERED: ESCI20TA (18:56)
[2019-02-18 19:24] LABS: BASO % 0.4 % (0.0-1.0); EOS # 0.1 10^3/uL (0.0-0.50); EOS % 1.4 % (0.0-3.0); HEMATOCRIT 34.8 % (36.0-47.0); HEMOGLOBIN 11.6 g/dl (12.0-15.5); LYMPH # 2.1 10^3/uL (1.5-6.5); LYMPH % 26.1 % (24.0-44.0); MEAN CORPUSCULAR HEMOGLOBIN 32.3 pg (27.0-33.0); MEAN CORPUSCULAR HGB CONC 33.3 g/dl (32.0-36.5); MEAN CORPUSCULAR VOLUME 96.9 fl (80.0-96.0); MONO # 0.7 10^3/uL (0.0-0.8); MONO % 8.5 % (0.0-5.0); NEUTROPHILS % 63.3 % (36.0-66.0); PLATELET COUNT, AUTOMATED 234 10^3/uL (150-450); RED BLOOD COUNT 3.59 10^6/uL (4.00-5.40); WHITE BLOOD COUNT 7.9 10^3/uL (4.0-10.0)
[2019-02-18] MEDS ORDERED: NS 1,000 ML IV ONE (19:45)
[2019-02-18 19:53] LABS: ALBUMIN 3.1 GM/DL (3.2-5.2); ALT/SGPT 19 U/L (12-78); BILIRUBIN,DIRECT < 0.1 MG/DL (0.0-0.2); BILIRUBIN,TOTAL 0.2 MG/DL (0.2-1.0); BLOOD UREA NITROGEN 13 MG/DL (7-18); CALCIUM LEVEL 8.1 MG/DL (8.5-10.1); CARBON DIOXIDE LEVEL 29 MEQ/L (21-32); CHLORIDE LEVEL 108 MEQ/L (98-107); CREATININE FOR GFR 0.72 MG/DL (0.55-1.30); GLOMERULAR FILTRATION RATE > 60.0 (>60); GLUCOSE, FASTING 130 MG/DL (70-100); LIPASE 161 U/L (73-393); POTASSIUM SERUM 3.9 MEQ/L (3.5-5.1); SODIUM LEVEL 144 MEQ/L (136-145); TOTAL PROTEIN 6.2 GM/DL (6.4-8.2)
[2019-02-18 19:55] LABS: HCG, SERUM QUALITATIVE NEGATIVE (NEGATIVE)
[2019-02-18] MEDS ORDERED: ACETAMINOPHEN TAB 650MG DOSE (2X325MG) PO ONE (20:00)
--- NOTE | 2019-02-18 22:16 | REPVR ---
EXAM: US Pelvis Complete, Transabdominal EXAM DATE/TIME: 02/18/2019 9:22 PM CLINICAL HISTORY: 23 years old, female; Pelvic pain; Additional info: Rlq/inguinal pain, h/o ovarian cysts TECHNIQUE: Imaging protocol: Real-time transabdominal pelvic ultrasound with image documentation. Complete exam. COMPARISON: Pelvis, limited US 01/05/2017 6:46 PM FINDINGS: Uterus/cervix: Uterus is normal in size, shape, and echotexture. The uterus measures 9.2 cm x 4.1 cm x 5.5 cm. No myometrial mass. The endometrial stripe is homogeneous and measures 10.1 mm in thickness. Right adnexa: The right ovary measures 7.4 cm x 6.4 cm x 5.6 cm. There is a complex cyst measuring 4.2 cm x 4.3 cm x 4.4 cm within the right ovary, likely representing a hemorrhagic cyst. Color and spectral Doppler. Blood flow to the right ovary is documented. Left adnexa: The left ovary has a normal appearance, measuring 3.4 cm x 2.4 cm x 3.2 cm. Color and spectral Doppler. Blood flow to the left ovary is documented. Free fluid: There is a small amount of free peritoneal fluid. Bladder: The urinary bladder is nearly completely empty, measuring 3.7 cm x 1.5 cm x 5.5 cm. IMPRESSION: 1. Complex cyst measuring 4.4 cm within the right ovary. This likely represents a hemorrhagic cyst. Consider 6-8 week followup pelvic ultrasound to confirm resolution. 2. Free intraperitoneal fluid within the pelvis. Electronically signed by: Rc Contreras On 02/18/2019 22:15:44 PM
--- NOTE | 2019-02-18 22:21 | REPVR ---
EXAM: US Abdomen Limited, Right Upper Quadrant EXAM DATE/TIME: 02/18/2019 9:22 PM CLINICAL HISTORY: 23 years old, female; Abdominal pain; Acute; Patient HX: Per pa the patient has positive anthony's sign; Additional info: Rlq/inguinal pain, h/o ovarian cysts TECHNIQUE: Imaging protocol: Real-time ultrasound of the abdomen with image documentation. Examination was focused on the right upper quadrant. COMPARISON: GALLBLADDER US 09/06/2013 8:56 AM FINDINGS: Liver: Normal. No masses. Gallbladder: The gallbladder is contracted. The gallbladder wall is mildly thickened, likely secondary to contraction. This has a similar appearance to the gallbladder seen on prior ultrasound of the right upper quadrant performed on 09/06/2013. No gallstones are identified. Common bile duct: The common bile duct has a normal diameter measuring 3.1 cm. Pancreas: Visualized pancreas is unremarkable. Right kidney: Unremarkable. No mass. No hydronephrosis. Intraperitoneal space: There is a small amount of fluid within Morison's pouch. IMPRESSION: 1. Tiny free fluid within Richey's pouch. 2. Mild gallbladder wall thickening, likely secondary to gallbladder contraction. Electronically signed by: Rc Contreras On 02/18/2019 22:21:13 PM
[2019-02-18] MEDS ORDERED: ISOVUE-370 76% 100ML VIAL (Q9967) As Ordered ONE (22:50)
--- NOTE | 2019-02-18 23:31 | REPVR ---
EXAM: CT Abdomen and Pelvis With Contrast EXAM DATE/TIME: 02/18/2019 11:00 PM CLINICAL HISTORY: 23 years old, female; Abdominal pain; Localized; Right lower quadrant (rlq); Additional info: Rlq pain, diffuse ttp TECHNIQUE: Imaging protocol: Axial computed tomography images of the abdomen and pelvis with intravenous contrast. Coronal and sagittal reformatted images were created and reviewed. Radiation optimization: All CT scans at this facility use at least one of these dose optimization techniques: automated exposure control; mA and/or kV adjustment per patient size (includes targeted exams where dose is matched to clinical indication); or iterative reconstruction. Contrast material: ISO; Contrast volume: 100 ml; Contrast route: AC; COMPARISON: US PELVIC NON-OB COMPLETE 02/18/2019 8:53 PM FINDINGS: ABDOMEN: Liver: Unremarkable. No mass. Gallbladder and bile ducts: Unremarkable. No calcified stones. No ductal dilation. Pancreas: Unremarkable. No ductal dilation. Spleen: Unremarkable. No splenomegaly. Adrenals: Normal. No mass. Kidneys and ureters: Unremarkable. No stones. No hydronephrosis. Stomach and bowel: The cecum is positioned in the midline of the lower pelvis. The colon, small bowel, and stomach are unremarkable. Appendix: The appendix is not visualized. No definite evidence of acute appendicitis is seen. PELVIS: Bladder: Unremarkable as visualized. Reproductive: Complex right ovarian cyst measuring 4.5 cm in diameter. Normal left ovary. ABDOMEN and PELVIS: Intraperitoneal space: Moderate free intraperitoneal fluid within the pelvis. Trace free intraperitoneal fluid adjacent to the inferior edge of the liver and within Morison's pouch. Bones/joints: No acute fracture. Soft tissues: Unremarkable. Vasculature: Unremarkable. No abdominal aortic aneurysm. Lymph nodes: Unremarkable. No enlarged lymph nodes. IMPRESSION: 1. Complex right ovarian cyst, measuring 4.5 cm. Consider 6-8 week followup pelvic ultrasound to confirm resolution. Correlate with beta hCG to exclude ectopic . 2. Moderate pelvic ascites and small ascites within the right upper quadrant. Electronically signed by: Rc Contreras On 02/18/2019 23:31:27 PM
[2019-02-18 23:55] VITALS: BP 102/50
--- NOTE | 2019-02-20 16:14 | ED PDOC ---
Post-Departure Follow-Up dr talavera and kaushik chiang faxed formal report of ct abd/p for fu Pedro Mariano MD February 20, 2019 16:14
--- NOTE | 2019-02-20 16:15 | ED PDOC ---
Post-Departure Follow-Up additionally pelvic us faxed to dr talavera and kaushik chiang for fu Pedro Mariano MD February 20, 2019 16:15
== END 2019-02-18 23:56 | disposition home or self-care (01) ==
LOC: M ED 18:48
DX: N83.291 Other ovarian cyst, right side (principal); Z88.0 Allergy status to penicillin; Z88.1 Allergy status to other antibiotic agents; Z88.8 Allergy status to other drugs, medicaments and biological substances; Z91.018 Allergy to other foods
CPT/HCPCS: 74177; 76705; 76856; 80048; 80076; 81001; 83690; 84703; 85025; 93976; 96360; 99284; Q9967

== ENCOUNTER → 2019-03-13 | Outpatient (REF) | payer OTHER ==
[~2019-03-13] MED LIST changes: +BUSP30TA; +ESCI20TA; +MONT10TA2; +PRAZ1CAP
[2019-03-13 21:52] LABS: APPEARANCE, URINE CLOUDY (CLEAR); BACTERIA, URINE AUTO 1+ (NEGATIVE); BILIRUBIN, URINE AUTO NEGATIVE (NEGATIVE); BLOOD, URINE BLOOD 1+ (NEGATIVE); COLOR, URINE YELLOW (YELLOW); GLUCOSE, URINE (UA) AUTO NEGATIVE (NEGATIVE); KETONE, URINE AUTO TRACE mg/dL (NEGATIVE); LEUKOCYTE ESTERASE, URINE AUTO 2+ (NEGATIVE); MUCUS, URINE MODERATE (NEGATIVE); NITRITE, URINE AUTO NEGATIVE (NEGATIVE); PROTEIN, URINE AUTO NEGATIVE (NEGATIVE); RBC, URINE AUTO 9 /HPF (0-3); SPECIFIC GRAVITY URINE AUTO 1.028 (1.002-1.035); SQUAMOUS EPITHELIAL CELL UR AU 27 /HPF (0-6); TRANSITIONAL EPITHELIAL AUTO 1 /HPF; UROBILINOGEN, URINE AUTO 0.2 mg/dL (0.0-2.0); WBC, URINE AUTO 8 /HPF (0-3)
== END ==
LOC: M LAB REF 09:41
PROVIDERS: ATTEND Physician Assistant
DX: N39.0 Urinary tract infection, site not specified (principal)

== ENCOUNTER → 2019-04-08 | Outpatient (CLI) | payer OTHER ==
[~2019-04-08] MED LIST changes: -BUSP30TA; +BUSP30TA PO; +ESCI10TA2 PO; +IBUP-1022 PO; -KETO20TA PO; -MECL-68 PO; +MECL1TAB31 PO; -MONT10TA2; +MONT10TA2 PO; -PRAZ1CAP; +PRAZ1CAP PO; +SERT-138 PO; +SERT50TA29; +ZOFR4TAB16 PO; +[UNRECOGNIZED DRUG - CODE] PO
== END ==
LOC: M RAD 10:36
PROVIDERS: ATTEND Obstetrics & Gynecology
DX: Z53.9 Procedure and treatment not carried out, unspecified reason (principal); N83.209 Unspecified ovarian cyst, unspecified side

== ENCOUNTER → 2019-04-09 | Outpatient (CLI) | payer OTHER ==
[~2019-04-09] MED LIST changes: +BUSP30TA; -BUSP30TA PO; -ESCI10TA2 PO; -IBUP-1022 PO; +KETO200T3 PO; +MECL-68 PO; -MECL1TAB31 PO; +MONT10TA2; -MONT10TA2 PO; +PRAZ1CAP; -PRAZ1CAP PO; -SERT-138 PO; -SERT50TA29; -ZOFR4TAB16 PO; -[UNRECOGNIZED DRUG - CODE] PO
--- NOTE | 2019-04-09 13:12 | REP ---
PELVIC ULTRASOUND: Real-time sonographic evaluation of the pelvis is performed utilizing transabdominal and endovaginal technique. Bladder measures 6.5 x 3.7 x 9.9 cm. Uterus measures 8.0 x 3.9 x 5.1 cm. Endometrial thickness is 6 mm with no endometrial fluid collection. Previously noted complex cyst of the right ovary has resolved. There is no evidence of ovarian cyst bilaterally. Right ovary measures 3.1 x 2.1 x 2.9 cm and left ovary 2.6 x 2.5 x 2.5 cm. There is no torsion bilaterally, RI right ovary 0.48 and left ovary 0.41. No free fluid is seen. IMPRESSION: Previously noted complex cyst of the right ovary has resolved with no mass or free fluid at this time. Electronically Signed by Benjamín Lima MD 04/09/2019 05:35 P
== END ==
LOC: M RAD 11:50
PROVIDERS: ATTEND Obstetrics & Gynecology
DX: N83.209 Unspecified ovarian cyst, unspecified side (principal)

== ENCOUNTER → 2019-04-20 | Outpatient (REF) | payer OTHER ==
[2019-04-20 21:56] LABS: AMORPHOUS SEDIMENT SMALL (NEGATIVE); APPEARANCE, URINE CLOUDY (CLEAR); BACTERIA, URINE AUTO NEGATIVE (NEGATIVE); BILIRUBIN, URINE AUTO NEGATIVE (NEGATIVE); BLOOD, URINE BLOOD 2+ (NEGATIVE); COLOR, URINE AMBER (YELLOW); GLUCOSE, URINE (UA) AUTO NEGATIVE (NEGATIVE); KETONE, URINE AUTO NEGATIVE (NEGATIVE); LEUKOCYTE ESTERASE, URINE AUTO 3+ (NEGATIVE); MUCUS, URINE LARGE (NEGATIVE); NITRITE, URINE AUTO NEGATIVE (NEGATIVE); PROTEIN, URINE AUTO NEGATIVE (NEGATIVE); RBC, URINE AUTO 40 /HPF (0-3); SPECIFIC GRAVITY URINE AUTO 1.026 (1.002-1.035); SQUAMOUS EPITHELIAL CELL UR AU 26 /HPF (0-6); TRANSITIONAL EPITHELIAL AUTO 1 /HPF; UROBILINOGEN, URINE AUTO 0.2 mg/dL (0.0-2.0); WBC, URINE AUTO 9 /HPF (0-3)
== END ==
LOC: M LAB REF 10:28
PROVIDERS: ATTEND Nurse Practitioner Family
DX: N39.0 Urinary tract infection, site not specified (principal)

== ENCOUNTER 2019-05-05 00:38 | Emergency (ER) | payer OTHER ==
[~2019-05-05] VITALS: Ht 162.6 cm; Wt 61.4 kg
[~2019-05-05 00:38] MED LIST changes: -BUSP30TA; +BUSP30TA PO; -MONT10TA2; +MONT10TA2 PO; -PRAZ1CAP; +PRAZ1CAP PO
[2019-05-05] MEDS ORDERED: SERT-155 (00:48)
[2019-05-05] MEDS ORDERED: ACETAMINOPHEN 325 MG TAB PO ONE (01:30)
[2019-05-05] MEDS ORDERED: NS 1,000 ML IV ONE (01:30)
[2019-05-05 01:39] LABS: BASO % 0.2 % (0.0-1.0); EOS % 0.6 % (0.0-3.0); HEMOGLOBIN 11.6 g/dl (12.0-15.5); LYMPH # 0.4 10^3/uL (1.5-6.5); LYMPH % 8.7 % (24.0-44.0); MEAN CORPUSCULAR HEMOGLOBIN 32.2 pg (27.0-33.0); MEAN CORPUSCULAR HGB CONC 33.1 g/dl (32.0-36.5); MEAN CORPUSCULAR VOLUME 97.2 fl (80.0-96.0); MONO # 0.1 10^3/uL (0.0-0.8); NEUTROPHILS # 4.4 10^3/uL (1.8-7.7); NEUTROPHILS % 89.3 % (36.0-66.0); PLATELET COUNT, AUTOMATED 165 10^3/uL (150-450); WHITE BLOOD COUNT 4.9 10^3/uL (4.0-10.0)
[2019-05-05 02:00] LABS: ALBUMIN 3.8 GM/DL (3.2-5.2); ALT/SGPT 25 U/L (12-78); BILIRUBIN,TOTAL 0.2 MG/DL (0.2-1.0); BLOOD UREA NITROGEN 15 MG/DL (7-18); CALCIUM LEVEL 8.5 MG/DL (8.5-10.1); CARBON DIOXIDE LEVEL 29 MEQ/L (21-32); CHLORIDE LEVEL 107 MEQ/L (98-107); CREATININE FOR GFR 0.89 MG/DL (0.55-1.30); GLOMERULAR FILTRATION RATE > 60.0 (>60); GLUCOSE, FASTING 103 MG/DL (70-100); LIPASE 123 U/L (73-393); POTASSIUM SERUM 3.7 MEQ/L (3.5-5.1); SODIUM LEVEL 142 MEQ/L (136-145); TOTAL PROTEIN 6.3 GM/DL (6.4-8.2)
[2019-05-05] MEDS ORDERED: ZOFR4TAB16 PO (02:06)
[2019-05-05] MEDS ORDERED: IBUP-1022 PO (02:14)
[2019-05-05 02:15] VITALS: BP 99/48
[2019-05-23] MEDS ORDERED: ESCI10TA2 PO (16:35)
[2019-05-23] MEDS ORDERED: SERT-138 PO (16:35)
[2019-05-23] MEDS ORDERED: MEDR10TA PO (16:35)
== END 2019-05-05 02:21 | disposition home or self-care (01) ==
LOC: M ED 00:38
DX: R11.2 Nausea with vomiting, unspecified (principal); R50.9 Fever, unspecified; M79.7 Fibromyalgia; J45.909 Unspecified asthma, uncomplicated; R51 Headache; Z87.448 Personal history of other diseases of urinary system; K63.9 Disease of intestine, unspecified; K82.9 Disease of gallbladder, unspecified; Z79.899 Other long term (current) drug therapy; Z88.0 Allergy status to penicillin; Z88.1 Allergy status to other antibiotic agents; Z88.8 Allergy status to other drugs, medicaments and biological substances; Z91.011 Allergy to milk products

== ENCOUNTER 2019-05-07 07:29 | Emergency (ER) | payer OTHER ==
[~2019-05-07] VITALS: Ht 162.6 cm; Wt 62.9 kg
[~2019-05-07 07:29] MED LIST changes: +IBUP-1022 PO; +SERT-155; +ZOFR4TAB16 PO
[2019-05-07] MEDS ORDERED: NS 1,000 ML IV ONE (08:30)
[2019-05-07] MEDS ORDERED: diphenhydrAMINE INJ 50MG/ML VIAL (J1200) IV ONE (08:30)
[2019-05-07] MEDS ORDERED: dexameTHASONE 20 MG/5 ML VIAL (J1100) IV ONE (08:30)
[2019-05-07] MEDS ORDERED: METOCLOPRAMIDE INJ 10MG/2ML VIAL (J2765) IV ONE (09:00)
[2019-05-07] MEDS ORDERED: KETOROLAC 30 MG/ML VIAL (J1885) IV ONE (09:00)
[2019-05-07 10:18] VITALS: BP 90/53
[2019-05-23] MEDS ORDERED: ESCI10TA2 PO (16:35)
[2019-05-23] MEDS ORDERED: MEDR10TA PO (16:35)
[2019-05-23] MEDS ORDERED: SERT-138 PO (16:35)
== END 2019-05-07 10:53 | disposition home or self-care (01) ==
LOC: M ED 07:29
DX: G43.909 Migraine, unspecified, not intractable, without status migrainosus (principal); F33.9 Major depressive disorder, recurrent, unspecified; F41.9 Anxiety disorder, unspecified; M79.7 Fibromyalgia; Z88.0 Allergy status to penicillin; Z88.1 Allergy status to other antibiotic agents; Z88.8 Allergy status to other drugs, medicaments and biological substances; F17.210 Nicotine dependence, cigarettes, uncomplicated
CPT/HCPCS: 96361; 96374; 96375; 99284; J1100; J1200; J1885; J2765

== ENCOUNTER → 2019-05-20 | Outpatient (CLI) | payer OTHER ==
[~2019-05-20] MED LIST changes: +ESCI10TA2 PO; +SERT-138 PO
--- NOTE | 2019-05-21 06:37 | REP ---
HIDA SCAN WITH GALLBLADDER EJECTION FRACTION: Following the intravenous administration of 6.6 millicuries of technetium 99m mebrofenin, multiple images of the right upper quadrant are performed for 1 hour. The gallbladder is visualized at 10 minutes post injection. There is biliary to bowel transit of about 35 minutes post injection with no scintigraphic evidence of cholecystitis. At the 1-hour ben, 8 ounces of Ensure Enlive is ingested and further imaging performed for 1 hour. Gallbladder activity is measured. The gallbladder ejection fraction is 81%, which is normal. IMPRESSION: Normal gallbladder ejection fraction. Electronically Signed by Benjamín Lima MD 05/21/2019 11:51 P
== END ==
LOC: M RAD 07:22
PROVIDERS: ATTEND Internal Medicine Gastroenterology
DX: R10.11 Right upper quadrant pain (principal)
CPT/HCPCS: 78227; A9537; J2805

== ENCOUNTER 2019-06-06 10:24 | Day surgery (SDC) | payer OTHER ==
[~2019-06-06] VITALS: Ht 162.6 cm; Wt 60.3 kg
[~2019-06-06 10:24] MED LIST changes: -KETO200T3 PO; -MECL-68 PO; +MECL1TAB31 PO; +NS 1,000 ML IV ONE; -SERT-155; +SERT50TA29; +[UNRECOGNIZED DRUG - CODE] PO
[2019-06-06] MEDS ORDERED: propofoL 200 MG/20 ML VIAL As Ordered ONE (11:08)
[2019-06-06] MEDS ORDERED: LIDOCAINE 2% INJ 100 MG/5 ML SDV (FOR ANES.) As Ordered ONE ×2 (11:08→11:54)
--- NOTE | 2019-06-06 12:44 | ROOR ---
Patient Name: Adalberto Alexander Procedure Date: 06/06/2019 11:46 AM Date of : 1995 Age: 23 Room: [facility] Gender: Female Note Status: Finalized Procedure: Upper GI endoscopy Indications: Dyspepsia, Dysphagia Providers: Aníbal Meza MD Referring MD: Ivana NAVARRETE NP Requesting Provider: Medicines: Monitored Anesthesia Care Complications: No immediate complications. Procedure: Pre-Anesthesia Assessment: - Prior to the procedure, a History and Physical was performed, and patient medications and allergies were reviewed. The patient is competent. The risks and benefits of the procedure and the sedation options and risks were discussed with the patient. All questions were answered and informed consent was obtained. Patient identification and proposed procedure were verified by the physician, the nurse and the anesthesiologist in the procedure room. Mental Status Examination: alert and oriented. Airway Examination: normal oropharyngeal airway and neck mobility. Respiratory Examination: clear to auscultation. CV Examination: normal. Prophylactic Antibiotics: The patient does not require prophylactic antibiotics. Prior Anticoagulants: The patient has taken no previous anticoagulant or antiplatelet agents. ASA Grade Assessment: II - A patient with mild systemic disease. After reviewing the risks and benefits, the patient was deemed in satisfactory condition to undergo the procedure. The anesthesia plan was to use monitored anesthesia care (MAC). Immediately prior to administration of medications, the patient was re-assessed for adequacy to receive sedatives. The heart rate, respiratory rate, oxygen saturations, blood pressure, adequacy of pulmonary ventilation, and response to care were monitored throughout the procedure. The physical status of the patient was re-assessed after the procedure. The Endoscope was introduced through the mouth, and advanced to the second part of duodenum. The upper GI endoscopy was accomplished without difficulty. The patient tolerated the procedure well. Findings: The Z-line was regular and was found in the distal esophagus. Patchy, white plaques were found in the middle third of the esophagus and in the lower third of the esophagus. Cells for cytology were obtained by brushing. Biopsies were obtained from the proximal and distal esophagus with cold forceps for histology of suspected eosinophilic esophagitis. Verification of patient identification for the specimen was done by the physician and nurse using the patient's name, date and medical record number. Estimated blood loss was minimal. Scattered minimal inflammation characterized by erythema and granularity was found in the gastric antrum. Biopsies were taken with a cold forceps for Helicobacter pylori testing. The duodenal bulb and second portion of the duodenum were normal. Biopsies for histology were taken with a cold forceps for evaluation of celiac disease. Impression: - Z-line regular, in the distal esophagus. - Esophageal plaques were found, suspicious for candidiasis. Cells for cytology obtained. Biopsied. - Gastritis. Biopsied. - Normal duodenal bulb and second portion of the duodenum. Biopsied. Recommendation: - Patient has a contact number available for emergencies. The signs and symptoms of potential delayed complications were discussed with the patient. Return to normal activities tomorrow. Written discharge instructions were provided to the patient. - High fiber diet. - Continue present medications. - Await pathology results. - Telephone GI clinic for pathology results in 2 weeks. - Return to primary care physician. Aníbal Meza MD Aníbal Meza MD 06/06/2019 12:44:20 PM Electronically signed by Aníbal Meza MD Number of Addenda: 0 Note Initiated On: 06/06/2019 11:46 AM Estimated Blood Loss: Estimated blood loss was minimal.
--- NOTE | 2019-06-06 12:47 | ROOR ---
Patient Name: Adalberto Alexander Procedure Date: 06/06/2019 11:48 AM Date of : 1995 Age: 23 Room: [facility] Gender: Female Note Status: Finalized Procedure: Colonoscopy Indications: Change in bowel habits, Constipation Providers: Aníbal Meza MD Referring MD: Ivana NAVARRETE NP Requesting Provider: Medicines: Monitored Anesthesia Care Complications: No immediate complications. Procedure: Pre-Anesthesia Assessment: - Prior to the procedure, a History and Physical was performed, and patient medications and allergies were reviewed. The patient is competent. The risks and benefits of the procedure and the sedation options and risks were discussed with the patient. All questions were answered and informed consent was obtained. Patient identification and proposed procedure were verified by the physician, the nurse and the anesthesiologist in the procedure room. Mental Status Examination: alert and oriented. Airway Examination: normal oropharyngeal airway and neck mobility. Respiratory Examination: clear to auscultation. CV Examination: normal. Prophylactic Antibiotics: The patient does not require prophylactic antibiotics. Prior Anticoagulants: The patient has taken no previous anticoagulant or antiplatelet agents. ASA Grade Assessment: I - A normal, healthy patient. After reviewing the risks and benefits, the patient was deemed in satisfactory condition to undergo the procedure. The anesthesia plan was to use monitored anesthesia care (MAC). Immediately prior to administration of medications, the patient was re-assessed for adequacy to receive sedatives. The heart rate, respiratory rate, oxygen saturations, blood pressure, adequacy of pulmonary ventilation, and response to care were monitored throughout the procedure. The physical status of the patient was re-assessed after the procedure. The Colonoscope was introduced through the anus and advanced to the terminal ileum, with identification of the appendiceal orifice and IC valve. The colonoscopy was performed without difficulty. The patient tolerated the procedure well. The quality of the bowel preparation was good. The terminal ileum, ileocecal valve, appendiceal orifice, and rectum were photographed. Scope insertion time was 3 minutes. Scope withdrawal time was 8 minutes. The total duration of the procedure was 11 minutes. Findings: The perianal and digital rectal examinations were normal. The terminal ileum appeared normal. A 4 mm polyp was found in the cecum. The polyp was sessile. The polyp was removed with a cold biopsy forceps. Resection and retrieval were complete. Verification of patient identification for the specimen was done by the physician and nurse using the patient's name, date and medical record number. Estimated blood loss was minimal. The colon (entire examined portion) was significantly tortuous. Advancing the scope required straightening and shortening the scope to obtain bowel loop reduction. Non-bleeding external and internal hemorrhoids were found during retroflexion. The hemorrhoids were medium-sized. Impression: - The examined portion of the ileum was normal. - One 4 mm polyp in the cecum, removed with a cold biopsy forceps. Resected and retrieved. - Tortuous colon. - Non-bleeding external and internal hemorrhoids. Recommendation: - Patient has a contact number available for emergencies. The signs and symptoms of potential delayed complications were discussed with the patient. Return to normal activities tomorrow. Written discharge instructions were provided to the patient. - High fiber diet. - Continue present medications. - Await pathology results. - Repeat colonoscopy in 5-10 years for surveillance based on pathology results. - Telephone GI clinic for pathology results in 2 weeks. - Return to primary care physician. Aníbal Meza MD Aníbal Meza MD 06/06/2019 12:46:46 PM Electronically signed by Aníbal Meza MD Number of Addenda: 0 Note Initiated On: 06/06/2019 11:48 AM Estimated Blood Loss: Estimated blood loss was minimal.
[2019-06-06 13:15] VITALS: BP 120/64
== END 2019-06-06 13:22 | disposition home or self-care (01) ==
LOC: M OPP 10:24
PROVIDERS: ATTEND Internal Medicine Gastroenterology
DX: K64.8 Other hemorrhoids (principal); D12.0 Benign neoplasm of cecum; R19.4 Change in bowel habit; Q43.8 Other specified congenital malformations of intestine; K22.9 Disease of esophagus, unspecified; K29.70 Gastritis, unspecified, without bleeding; R10.13 Epigastric pain; R13.10 Dysphagia, unspecified; Z88.0 Allergy status to penicillin; Z88.1 Allergy status to other antibiotic agents; Z88.8 Allergy status to other drugs, medicaments and biological substances; Z91.011 Allergy to milk products

== ENCOUNTER → 2019-11-26 | Outpatient (REF) | payer OTHER ==
[~2019-11-26] MED LIST changes: -MONT10TA2 PO; +MONT10TA4 PO; -NS 1,000 ML IV ONE
[2019-11-26 21:07] LABS: CHLAMYDIA DNA AMPLIFICATION NEGATIVE (NEGATIVE); GC DNA AMPLIFICATION NEGATIVE (NEGATIVE)
== END ==
LOC: M SFHCWAGY 17:11
PROVIDERS: ATTEND Nurse Practitioner Women's Health
DX: R30.0 Dysuria (principal)

== ENCOUNTER → 2019-12-02 | Outpatient (CLI) | payer OTHER ==
--- NOTE | 2019-12-03 08:11 | REP ---
Clinical: Pelvic pain. Technique: Transabdominal pelvic ultrasound followed by transvaginal examination for better evaluation of the endometrium and adnexa with color Doppler evaluation of the ovaries. Findings: Bladder is partially collapsed but grossly normal in appearance and measures approximately 4.9 x 2.5 x 5.3 cm. Anteverted uterus measures 6.8 x 3.8 x 5.1 cm. A small amount of endocervical fluid is identified. Endometrial complex measures 3.5 mm thickness excluding the fluid. No discrete uterine or endometrial abnormalities otherwise appreciated. The bilateral ovaries are relatively normal in appearance and vascularity demonstrating multiple peripheral follicles. Right ovary measures 3.5 x 1.9 x 3.0 cm. Left ovary measures 3.9 x 2.6 x 2.2 cm. No pelvic fluid or adnexal mass lesion. Impression: Essentially normal pelvic ultrasound as described above. Small amount of endocervical fluid is nonspecific.
== END ==
LOC: M WHC 13:17
PROVIDERS: ATTEND Nurse Practitioner Women's Health
DX: R10.2 Pelvic and perineal pain (principal)

== ENCOUNTER → 2020-02-13 | Outpatient (REF) | payer OTHER ==
[2020-02-13 16:52] LABS: BASO # 0.1 10^3/uL (0.0-0.2); BASO % 0.9 % (0.0-1.0); EOS # 0.2 10^3/uL (0.0-0.5); EOS % 3.6 % (0.0-3.0); HEMATOCRIT 41.9 % (36.0-47.0); HEMOGLOBIN 13.7 g/dl (12.0-15.5); LYMPH # 1.8 10^3/uL (1.5-5.0); LYMPH % 30.6 % (24.0-44.0); MEAN CORPUSCULAR HEMOGLOBIN 31.4 pg (27.0-33.0); MEAN CORPUSCULAR HGB CONC 32.7 g/dl (32.0-36.5); MEAN CORPUSCULAR VOLUME 95.9 fl (80.0-96.0); MONO # 0.6 10^3/uL (0.0-0.8); MONO % 10.4 % (0.0-5.0); NEUTROPHILS # 3.1 10^3/uL (1.5-8.5); NEUTROPHILS % 54.2 % (36.0-66.0); PLATELET COUNT, AUTOMATED 268 10^3/uL (150-450); RED BLOOD COUNT 4.37 10^6/uL (4.00-5.40); WHITE BLOOD COUNT 5.8 10^3/uL (4.0-10.0)
[2020-02-13 16:55] LABS: APPEARANCE, URINE HAZY (CLEAR); BACTERIA, URINE AUTO NEGATIVE (NEGATIVE); BILIRUBIN, URINE AUTO NEGATIVE (NEGATIVE); BLOOD, URINE BLOOD NEGATIVE (NEGATIVE); COLOR, URINE AMBER (YELLOW); GLUCOSE, URINE (UA) AUTO NEGATIVE (NEGATIVE); KETONE, URINE AUTO NEGATIVE (NEGATIVE); LEUKOCYTE ESTERASE, URINE AUTO NEGATIVE (NEGATIVE); MUCUS, URINE LARGE (NEGATIVE); NITRITE, URINE AUTO NEGATIVE (NEGATIVE); PROTEIN, URINE AUTO NEGATIVE (NEGATIVE); RBC, URINE AUTO 1 /HPF (0-3); SPECIFIC GRAVITY URINE AUTO 1.025 (1.002-1.035); SQUAMOUS EPITHELIAL CELL UR AU 5 /HPF (0-6); UROBILINOGEN, URINE AUTO 0.2 mg/dL (0.0-2.0); WBC, URINE AUTO 1 /HPF (0-3)
[2020-02-13 17:06] LABS: ALBUMIN 4.2 GM/DL (3.2-5.2); ALT/SGPT 29 U/L (12-78); BILIRUBIN,TOTAL 0.4 MG/DL (0.2-1.0); BLOOD UREA NITROGEN 14 MG/DL (7-18); CALCIUM LEVEL 8.6 MG/DL (8.5-10.1); CARBON DIOXIDE LEVEL 29 MEQ/L (21-32); CHLORIDE LEVEL 104 MEQ/L (98-107); CHOLESTEROL LEVEL 275 MG/DL (<200); CHOLESTEROL RISK RATIO 5.092 (<5); CREATININE FOR GFR 0.88 MG/DL (0.55-1.30); FREE T4 0.85 NG/DL (0.76-1.46); GLOMERULAR FILTRATION RATE > 60.0 (>60); GLUCOSE, FASTING 83 MG/DL (70-100); HDL CHOLESTEROL 54 MG/DL (>40); LDL CHOLESTEROL 201 MG/DL (<100); NON-HDL-C 221 MG/DL; POTASSIUM SERUM 3.8 MEQ/L (3.5-5.1); SODIUM LEVEL 139 MEQ/L (136-145); TOTAL PROTEIN 7.7 GM/DL (6.4-8.2); TRIGLYCERIDES LEVEL 99 MG/DL (<150)
[2020-02-13 19:16] LABS: HEMOGLOBIN A1c 5.6 %
== END ==
LOC: M LAB REF 16:06
PROVIDERS: ATTEND Nurse Practitioner Family
DX: K29.00 Acute gastritis without bleeding (principal); Z13.9 Encounter for screening, unspecified; E55.9 Vitamin D deficiency, unspecified; M54.9 Dorsalgia, unspecified; F41.9 Anxiety disorder, unspecified

== ENCOUNTER → 2020-02-25 | Outpatient (CLI) | payer OTHER ==
[~2020-02-25] MED LIST changes: +E-Z-GAS II EFFERVESCENT PACKET (SODIUM BICARB./CITRIC ACID/SIMETHICONE) As Ordered ONE; +E-Z-HD 98% w/w 340GM SUSP BTL As Ordered ONE; +E-Z-PAQUE 96% w/w SUSP 176GM BTL As Ordered ONE
--- NOTE | 2020-02-25 17:16 | REP ---
Small bowel follow-through The procedure was performed under the direct supervision of Dr. Lima. The images were reviewed with Dr. Lima. The actor understudy film shows no organomegaly or pathological masses. The intestinal gas pattern is nonspecific. Liquid barium was administered and the barium column was followed through the small bowel to the level of the terminal ileum. Small bowel transit time is approximately 45 minutes . During fluoroscopy gentle palpation shows all loops are freely movable and pliable. There are no fixed or angulated loops. The small bowel mucosal pattern is normal in course and caliber. There is no transition to suggest a partial small bowel obstruction. Spot filming of the terminal ileum shows it to be unremarkable. Impression: Small bowel follow-through examination within normal limits. 0.7 minutes of fluoro time was utilized for this procedure. Electronically Signed by JENISE Simon 02/25/2020 02:13 P Electronically Signed by Benjamín Lima MD 02/25/2020 05:06 P
--- NOTE | 2020-02-25 17:16 | REP ---
AIR CONTRAST UPPER GI WITH ESOPHAGRAM The procedure was performed under the direct supervision of Dr. Lima. The images were reviewed with Dr. Lima. A single view PA chest x-ray is submitted as a mild disabilities teacher film. The superior mediastinal structures are midline. Heart size within normal limits. Lungs are clear. Liquid barium and gas producing granules were given in the erect position as well as liquid barium in the prone oblique positions in order to perform a double contrast upper GI and esophagram examination. The oral and pharyngeal stages of deglutition are unremarkable. Esophageal transport is prompt and efficient and there is no esophagitis stricture mucosal ring or hiatal hernia. Gastroesophageal reflux is not demonstrated on this examination. The stomach gusman are normally aligned. The rugal folds are smooth and regular. There is no gastritis neoplasm or ulcer disease. The duodenal gusman are normally aligned. The mucosal folds are smooth and regular. There is no duodenitis pancreatitis peptic ulcer disease or neoplasm. The visualized portion of the proximal small bowel appears normal in course and caliber. Impression: Essentially unremarkable double contrast esophagram and upper GI examination. 0.6 minutes of fluoroscopy time was utilized for this procedure. Electronically Signed by JENISE Simon 02/25/2020 02:15 P Electronically Signed by Benjamín Lima MD 02/25/2020 05:06 P
== END ==
LOC: M RAD 08:34
PROVIDERS: ATTEND Internal Medicine Gastroenterology
DX: R13.10 Dysphagia, unspecified (principal); R10.13 Epigastric pain

== ENCOUNTER → 2020-05-13 | Outpatient (REF) | payer OTHER ==
[~2020-05-13] MED LIST changes: -E-Z-GAS II EFFERVESCENT PACKET (SODIUM BICARB./CITRIC ACID/SIMETHICONE) As Ordered ONE; -E-Z-HD 98% w/w 340GM SUSP BTL As Ordered ONE; -E-Z-PAQUE 96% w/w SUSP 176GM BTL As Ordered ONE
[2020-05-13 17:43] LABS: BASO % 0.2 % (0.0-1.0); EOS # 0.1 10^3/uL (0.0-0.5); EOS % 2.4 % (0.0-3.0); HEMATOCRIT 38.3 % (36.0-47.0); HEMOGLOBIN 12.3 g/dl (12.0-15.5); LYMPH # 1.5 10^3/uL (1.5-5.0); MEAN CORPUSCULAR HEMOGLOBIN 31.1 pg (27.0-33.0); MEAN CORPUSCULAR HGB CONC 32.1 g/dl (32.0-36.5); MONO # 0.6 10^3/uL (0.0-0.8); MONO % 9.5 % (0.0-5.0); NEUTROPHILS # 3.6 10^3/uL (1.5-8.5); NEUTROPHILS % 61.7 % (36.0-66.0); PLATELET COUNT, AUTOMATED 242 10^3/uL (150-450); RED BLOOD COUNT 3.95 10^6/uL (4.00-5.40); WHITE BLOOD COUNT 5.8 10^3/uL (4.0-10.0)
[2020-05-13 18:48] LABS: ALBUMIN 3.8 GM/DL (3.2-5.2); ALT/SGPT 24 U/L (12-78); BILIRUBIN,TOTAL 0.3 MG/DL (0.2-1.0); BLOOD UREA NITROGEN 12 MG/DL (7-18); CALCIUM LEVEL 8.6 MG/DL (8.5-10.1); CARBON DIOXIDE LEVEL 30 MEQ/L (21-32); CHLORIDE LEVEL 106 MEQ/L (98-107); CHOLESTEROL LEVEL 146 MG/DL (<200); CHOLESTEROL RISK RATIO 3.244 (<5); CREATININE FOR GFR 0.82 MG/DL (0.55-1.30); GLOMERULAR FILTRATION RATE > 60.0 (>60); GLUCOSE, FASTING 87 MG/DL (70-100); HDL CHOLESTEROL 45 MG/DL (>40); LDL CHOLESTEROL 82 MG/DL (<100); NON-HDL-C 101 MG/DL; SODIUM LEVEL 139 MEQ/L (136-145); TOTAL PROTEIN 6.8 GM/DL (6.4-8.2); TRIGLYCERIDES LEVEL 97 MG/DL (<150)
== END ==
LOC: M LAB REF 16:56
PROVIDERS: ATTEND Nurse Practitioner Family
DX: E78.5 Hyperlipidemia, unspecified (principal); K29.00 Acute gastritis without bleeding; Z13.9 Encounter for screening, unspecified

== ENCOUNTER 2021-01-23 12:10 | Emergency (ER) | payer OTHER ==
[~2021-01-23] VITALS: Ht 162.6 cm; Wt 68.2 kg
[~2021-01-23 12:10] MED LIST changes: +ESCI10TA16 PO; -ESCI10TA2 PO; -ESCI20TA; +ESCI20TA16; +MONT10TA10 PO; -MONT10TA4 PO
[2021-01-23] MEDS ORDERED: ALBU8.5H (12:30)
[2021-01-23] MEDS ORDERED: ARIP1TAB6 (12:30)
[2021-01-23 14:38] VITALS: BP 120/69
[2021-01-23 15:33] LABS: CHLAMYDIA DNA AMPLIFICATION NEGATIVE (NEGATIVE); GC DNA AMPLIFICATION NEGATIVE (NEGATIVE)
== END 2021-01-23 14:46 | disposition home or self-care (01) ==
LOC: M ED 12:10
DX: Z20.2 Contact with and (suspected) exposure to infections with a predominantly sexual mode of transmission (principal); R10.2 Pelvic and perineal pain; Z79.899 Other long term (current) drug therapy; Z88.0 Allergy status to penicillin; Z88.1 Allergy status to other antibiotic agents; Z88.8 Allergy status to other drugs, medicaments and biological substances; Z91.018 Allergy to other foods

== ENCOUNTER 2022-01-01 12:10 | Emergency (ER) | payer OTHER ==
[~2022-01-01] VITALS: Ht 162.6 cm; Wt 74.3 kg
[~2022-01-01 12:10] MED LIST changes: +ALBU8.5H; +ARIP1TAB6; -MONT10TA10 PO; +MONT10TA97 PO
[2022-01-01 12:11] VITALS: BP 99/56
[2022-01-01] MEDS ORDERED: ONDANSETRON 4MG/2ML VIAL IV ONE (12:35)
[2022-01-01] MEDS ORDERED: NS 1,000 ML IV ONE (12:35)
[2022-01-01 13:20] LABS: BASO % 0.5 % (0.0-1.0); EOS # 0.1 10^3/uL (0.0-0.5); EOS % 0.9 % (0.0-3.0); HEMOGLOBIN 12.3 g/dl (12.0-15.5); LYMPH # 1.6 10^3/uL (1.5-5.0); LYMPH % 28.3 % (24.0-44.0); MEAN CORPUSCULAR HEMOGLOBIN 31.4 pg (27.0-33.0); MEAN CORPUSCULAR HGB CONC 32.4 g/dl (32.0-36.5); MEAN CORPUSCULAR VOLUME 96.9 fl (80.0-96.0); MONO # 0.5 10^3/uL (0.0-0.8); MONO % 9.2 % (2.0-8.0); NEUTROPHILS # 3.5 10^3/uL (1.5-8.5); NEUTROPHILS % 60.8 % (36.0-66.0); PLATELET COUNT, AUTOMATED 244 10^3/uL (150-450); RED BLOOD COUNT 3.92 10^6/uL (4.00-5.40); WHITE BLOOD COUNT 5.8 10^3/uL (4.0-10.0)
[2022-01-01 13:43] LABS: ALBUMIN 3.8 GM/DL (3.2-5.2); ALT/SGPT 21 U/L (12-78); BILIRUBIN,DIRECT < 0.1 MG/DL (0.0-0.2); BILIRUBIN,TOTAL 0.2 MG/DL (0.2-1.0); LIPASE 202 U/L (73-393); TOTAL PROTEIN 6.8 GM/DL (6.4-8.2)
[2022-01-01] MEDS ORDERED: ISOVUE-370 76% 100ML VIAL As Ordered ONE (13:57)
[2022-01-01] MEDS ORDERED: IBUP80TA PO (15:01)
[2022-01-01] MEDS ORDERED: ONDA4TAB6 PO (15:03)
== END 2022-01-01 15:18 | disposition home or self-care (01) ==
LOC: M ED 12:10
DX: E28.2 Polycystic ovarian syndrome (principal); R11.2 Nausea with vomiting, unspecified; R19.7 Diarrhea, unspecified; R23.8 Other skin changes; J45.909 Unspecified asthma, uncomplicated; F41.9 Anxiety disorder, unspecified; F32.A Depression, unspecified; Z88.1 Allergy status to other antibiotic agents; Z79.899 Other long term (current) drug therapy; Z88.8 Allergy status to other drugs, medicaments and biological substances
CPT/HCPCS: 74177; 80047; 80076; 81001; 83690; 84702; 85025; 96361; 96374; 99283; J2405; Q9967

== ENCOUNTER → 2022-02-04 | Outpatient (CLI) | payer OTHER ==
[~2022-02-04] MED LIST changes: +IBUP80TA PO; +ONDA4TAB6 PO
== END ==
LOC: M RAD 12:15
PROVIDERS: ATTEND Nurse Practitioner Family
DX: E28.2 Polycystic ovarian syndrome (principal)

== ENCOUNTER 2023-03-24 12:16 | Emergency (ER) | payer OTHER ==
[~2023-03-24] VITALS: Ht 162.6 cm; Wt 61.5 kg
[~2023-03-24 12:16] MED LIST changes: -MEDR10TA PO; +MEDR10TA9 PO
[2023-03-24 12:17] VITALS: TEMP 98.6
[2023-03-24] MEDS ORDERED: NS 1,000 ML IV ONE (12:50)
[2023-03-24 12:58] LABS: BASO % 0.6 % (0.0-1.0); EOS % 0.5 % (0.0-3.0); HEMATOCRIT 40.6 % (36.0-47.0); HEMOGLOBIN 12.9 g/dl (12.0-15.5); LYMPH # 1.3 10^3/uL (1.5-5.0); LYMPH % 20.9 % (24.0-44.0); MEAN CORPUSCULAR HEMOGLOBIN 30.8 pg (27.0-33.0); MEAN CORPUSCULAR HGB CONC 31.8 g/dl (32.0-36.5); MEAN CORPUSCULAR VOLUME 96.9 fl (80.0-96.0); MONO # 0.5 10^3/uL (0.0-0.8); MONO % 8.1 % (2.0-8.0); NEUTROPHILS # 4.4 10^3/uL (1.5-8.5); NEUTROPHILS % 69.6 % (36.0-66.0); PLATELET COUNT, AUTOMATED 269 10^3/uL (150-450); RED BLOOD COUNT 4.19 10^6/uL (4.00-5.40); WHITE BLOOD COUNT 6.3 10^3/uL (4.0-10.0)
[2023-03-24] MEDS ORDERED: KETOROLAC 30 MG/ML 1ML VIAL IV ONE (14:45)
[2023-03-24 15:36] LABS: GC DNA AMPLIFICATION NEGATIVE (NEGATIVE)
[2023-03-24] MEDS ORDERED: IBUP-1022 PO (16:05)
[2023-03-24 16:10] VITALS: BP 108/58; O2SAT 100
== END 2023-03-24 16:11 | disposition home or self-care (01) ==
LOC: M ED 12:16
DX: N93.9 Abnormal uterine and vaginal bleeding, unspecified (principal); N88.8 Other specified noninflammatory disorders of cervix uteri; N94.6 Dysmenorrhea, unspecified; J45.909 Unspecified asthma, uncomplicated; F41.9 Anxiety disorder, unspecified; F32.A Depression, unspecified; E28.2 Polycystic ovarian syndrome; Z88.8 Allergy status to other drugs, medicaments and biological substances; Z88.1 Allergy status to other antibiotic agents; Z91.018 Allergy to other foods; Z79.899 Other long term (current) drug therapy; Z79.51 Long term (current) use of inhaled steroids
CPT/HCPCS: 76830; 76856; 80047; 81001; 84702; 85025; 86850; 86900; 86901; 87661; 87810; 87850; 93976; 96374; 99284; J1885

== ENCOUNTER 2023-08-21 15:45 | Emergency (ER) | payer MEDICAID, OTHER, SELFPAY ==
[~2023-08-21] VITALS: Ht 162.6 cm; Wt 62.3 kg
[~2023-08-21 15:45] MED LIST changes: +MECL-209 PO; -MECL1TAB31 PO
[2023-08-21 15:46] VITALS: BP 108/67; TEMP 99.1; O2SAT 99
== END 2023-08-21 18:40 | disposition left against medical advice (07) ==
LOC: M ED 15:45
DX: Z53.21 Procedure and treatment not carried out due to patient leaving prior to being seen by health care provider (principal)

== ENCOUNTER → 2023-08-22 | Outpatient (REF) | payer SELFPAY, OTHER | LOC: M LAB REF 18:22 | PROVIDERS: ATTEND Nurse Practitioner Family | DX: J02.9 Acute pharyngitis, unspecified (principal) ==

== ENCOUNTER → 2023-09-06 | Outpatient (CLI) | payer MEDICAID, OTHER | LOC: M WHC 07:09 | PROVIDERS: ATTEND Nurse Practitioner Family | DX: R10.2 Pelvic and perineal pain (principal) ==

== ENCOUNTER → 2023-10-05 | Outpatient (CLI) | payer MEDICAID, OTHER ==
[2023-10-05 15:55] LABS: BASO # 0.1 10^3/uL (0.0-0.2); BASO % 0.8 % (0.0-1.0); EOS # 0.2 10^3/uL (0.0-0.5); EOS % 2.1 % (0.0-3.0); HEMOGLOBIN 11.9 g/dl (12.0-15.5); LYMPH # 2.4 10^3/uL (1.5-5.0); LYMPH % 31.6 % (24.0-44.0); MEAN CORPUSCULAR HEMOGLOBIN 31.4 pg (27.0-33.0); MEAN CORPUSCULAR HGB CONC 32.2 g/dl (32.0-36.5); MEAN CORPUSCULAR VOLUME 97.6 fl (80.0-96.0); MONO # 0.7 10^3/uL (0.0-0.8); MONO % 9.6 % (2.0-8.0); NEUTROPHILS # 4.2 10^3/uL (1.5-8.5); NEUTROPHILS % 55.5 % (36.0-66.0); PLATELET COUNT, AUTOMATED 294 10^3/uL (150-450); RED BLOOD COUNT 3.79 10^6/uL (4.00-5.40); WHITE BLOOD COUNT 7.6 10^3/uL (4.0-10.0)
[2023-10-05 16:20] LABS: ALBUMIN 3.7 G/DL (3.2-5.2); ALKALINE PHOSPHATASE 61 U/L (46-116); ALT/SGPT 16 U/L (7.0-40); AST/SGOT 14 U/L (<34); BILIRUBIN,TOTAL 0.4 MG/DL (0.3-1.2); BLOOD UREA NITROGEN 11 MG/DL (9-23); CALCIUM LEVEL 8.7 MG/DL (8.5-10.1); CARBON DIOXIDE LEVEL 28 MMOL/L (20-31); CHLORIDE LEVEL 110 MMOL/L (98-107); CREATININE FOR GFR 0.72 MG/DL (0.55-1.30); GLOMERULAR FILTRATION RATE > 60.0 (>60); GLUCOSE, FASTING 90 MG/DL (60-100); IRON (FE) 90 UG/DL (50-170); PERCENT SATURATION 26.3 % (13.2-45.0); SODIUM LEVEL 143 MMOL/L (136-145); TOTAL IRON BINDING CAPACITY 342 UG/DL (250-425); TOTAL PROTEIN 6.4 G/DL (5.7-8.2)
[2023-10-05 16:21] LABS: FERRITIN 25.2 NG/ML (7.3-270.7)
[2023-10-05 16:22] LABS: THYROID STIMULATING HORMONE 0.467 uIU/ML (0.55-4.78); TOTAL 25(OH) VITAMIN D 24.2 NG/ML (20.0-100.0); VITAMIN B12 LEVEL 678 PG/ML (211-911)
[2023-10-05 16:23] LABS: FREE T4 0.89 NG/DL (0.89-1.76)
== END ==
LOC: M LAB 15:18
PROVIDERS: ATTEND Physician Assistant
DX: L21.9 Seborrheic dermatitis, unspecified (principal)

== ENCOUNTER → 2023-10-25 | Outpatient (REF) | payer OTHER | LOC: M SFHCWAGY 14:39 | PROVIDERS: ATTEND Nurse Practitioner Family | DX: Z12.4 Encounter for screening for malignant neoplasm of cervix (principal); Z11.51 Encounter for screening for human papillomavirus (HPV) ==

== ENCOUNTER → 2023-10-26 | Outpatient (CLI) | payer OTHER | LOC: M RAD 09:13 | PROVIDERS: ATTEND Nurse Practitioner Family | DX: R10.9 Unspecified abdominal pain (principal) ==

== ENCOUNTER → 2023-10-27 | Outpatient (REF) | payer OTHER | LOC: M LAB REF 17:03 | PROVIDERS: ATTEND Nurse Practitioner Family | DX: R89.1 Abnormal level of hormones in specimens from other organs, systems and tissues (principal) ==

== ENCOUNTER → 2023-12-15 | Outpatient (CLI) | payer OTHER ==
[~2023-12-15] MED LIST changes: +FAMO20TA5 PO; +MONT5TAB7 PO; +OXYC1TAB23 PO; -SING5CHW23 PO; +VITA200032 PO
== END ==
LOC: M RAD 07:12
PROVIDERS: ATTEND Nurse Practitioner Family
DX: K82.9 Disease of gallbladder, unspecified (principal)
CPT/HCPCS: 78227; A9537

== ENCOUNTER → 2023-12-26 | Outpatient (CLI) | payer OTHER | LOC: M EKG 13:50 | PROVIDERS: ATTEND Nurse Practitioner Family | DX: I49.3 Ventricular premature depolarization (principal) ==

== ENCOUNTER → 2024-03-25 | Outpatient (REF) | payer OTHER ==
[~2024-03-25] MED LIST changes: +ONDA-282 PO; -ONDA4TAB6 PO
[2024-03-25 18:17] LABS: APPEARANCE, URINE HAZY (CLEAR); BACTERIA, URINE AUTO NEGATIVE (NEGATIVE); BILIRUBIN, URINE AUTO NEGATIVE (NEGATIVE); BLOOD, URINE BLOOD NEGATIVE (NEGATIVE); COLOR, URINE YELLOW (YELLOW); GLUCOSE, URINE (UA) AUTO NEGATIVE (NEGATIVE); KETONE, URINE AUTO TRACE mg/dL (NEGATIVE); LEUKOCYTE ESTERASE, URINE AUTO TRACE (NEGATIVE); MUCUS, URINE LARGE (NEGATIVE); NITRITE, URINE AUTO NEGATIVE (NEGATIVE); PROTEIN, URINE AUTO NEGATIVE (NEGATIVE); RBC, URINE AUTO 1 /HPF (0-3); SPECIFIC GRAVITY URINE AUTO 1.026 (1.002-1.035); SQUAMOUS EPITHELIAL CELL UR AU 9 /HPF (0-6); UROBILINOGEN, URINE AUTO 0.2 mg/dL (0.0-2.0); WBC, URINE AUTO 2 /HPF (0-3)
== END ==
LOC: M LAB REF 16:33
PROVIDERS: ATTEND Physician Assistant Medical
DX: N39.0 Urinary tract infection, site not specified (principal)

== ENCOUNTER 2024-03-31 19:03 | Emergency (ER) | payer OTHER ==
[~2024-03-31] VITALS: Ht 162.6 cm; Wt 58.7 kg
[2024-03-31 19:06] VITALS: BP 123/58; TEMP 98.9; O2SAT 98
[2024-03-31 21:08] LABS: APPEARANCE, URINE HAZY (CLEAR); BACTERIA, URINE AUTO NEGATIVE (NEGATIVE); BILIRUBIN, URINE AUTO NEGATIVE (NEGATIVE); BLOOD, URINE BLOOD NEGATIVE (NEGATIVE); COLOR, URINE YELLOW (YELLOW); GLUCOSE, URINE (UA) AUTO NEGATIVE (NEGATIVE); KETONE, URINE AUTO NEGATIVE (NEGATIVE); LEUKOCYTE ESTERASE, URINE AUTO NEGATIVE (NEGATIVE); MUCUS, URINE SMALL (NEGATIVE); NITRITE, URINE AUTO NEGATIVE (NEGATIVE); PROTEIN, URINE AUTO NEGATIVE (NEGATIVE); RBC, URINE AUTO 0 /HPF (0-3); SPECIFIC GRAVITY URINE AUTO 1.018 (1.002-1.035); SQUAMOUS EPITHELIAL CELL UR AU 3 /HPF (0-6); UROBILINOGEN, URINE AUTO 0.2 mg/dL (0.0-2.0); WBC, URINE AUTO 1 /HPF (0-3)
[2024-03-31 21:18] LABS: BASO % 0.5 % (0.0-1.0); EOS # 0.2 10^3/uL (0.0-0.5); EOS % 2.1 % (0.0-3.0); HEMATOCRIT 36.3 % (36.0-47.0); HEMOGLOBIN 11.7 g/dl (12.0-15.5); LYMPH # 1.9 10^3/uL (1.5-5.0); LYMPH % 21.6 % (24.0-44.0); MEAN CORPUSCULAR HEMOGLOBIN 31.4 pg (27.0-33.0); MEAN CORPUSCULAR HGB CONC 32.2 g/dl (32.0-36.5); MEAN CORPUSCULAR VOLUME 97.3 fl (80.0-96.0); MONO # 0.7 10^3/uL (0.0-0.8); MONO % 8.3 % (2.0-8.0); NEUTROPHILS % 67.3 % (36.0-66.0); PLATELET COUNT, AUTOMATED 262 10^3/uL (150-450); RED BLOOD COUNT 3.73 10^6/uL (4.00-5.40); WHITE BLOOD COUNT 8.9 10^3/uL (4.0-10.0)
[2024-03-31 21:24] LABS: LIPASE 28 U/L (12-53)
[2024-03-31 21:26] LABS: ALBUMIN 3.5 G/DL (3.2-5.2); ALKALINE PHOSPHATASE 54 U/L (46-116); ALT/SGPT 12 U/L (7.0-40); AST/SGOT 9 U/L (<34); BILIRUBIN,DIRECT < 0.1 MG/DL (<0.4); BILIRUBIN,TOTAL 0.3 MG/DL (0.3-1.2); BLOOD UREA NITROGEN 11 MG/DL (9-23); CALCIUM LEVEL 8.6 MG/DL (8.5-10.1); CARBON DIOXIDE LEVEL 28 MMOL/L (20-31); CHLORIDE LEVEL 108 MMOL/L (98-107); CREATININE FOR GFR 0.73 MG/DL (0.55-1.30); GLOMERULAR FILTRATION RATE > 60.0 (>60); GLUCOSE, FASTING 98 MG/DL (60-100); POTASSIUM SERUM 3.4 MMOL/L (3.5-5.1); SODIUM LEVEL 140 MMOL/L (136-145); TOTAL PROTEIN 5.9 G/DL (5.7-8.2)
[2024-03-31 21:36] LABS: HCG, SERUM QUALITATIVE POSITIVE (NEGATIVE)
[2024-03-31 22:26] LABS: HCG, SERUM QUANTITATIVE 4148.2 MIU/ML (<4.2)
[2024-03-31] MEDS: ACETAMINOPHEN 500 MG TAB PO ONE (23:25)
[2024-03-31 23:48] LABS: Trichomonas vaginalis (AMP) NOT DETECTED (NEGATIVE)
[2024-04-01 00:12] LABS: GC DNA AMPLIFICATION NEGATIVE (NEGATIVE)
[2024-04-01] MEDS ORDERED: ONDA-282 PO (00:40)
[2024-04-01] MEDS: ONDANSETRON 4MG ORAL DISINTEGRATING TAB PO ONE (00:50)
== END 2024-04-01 01:04 | disposition home or self-care (01) ==
LOC: M ED 19:03
DX: O26.891 Other specified pregnancy related conditions, first trimester (principal); Z3A.01 Less than 8 weeks gestation of pregnancy; O99.281 Endocrine, nutritional and metabolic diseases complicating pregnancy, first trimester; O99.611 Diseases of the digestive system complicating pregnancy, first trimester; O99.511 Diseases of the respiratory system complicating pregnancy, first trimester; O99.341 Other mental disorders complicating pregnancy, first trimester; Z88.1 Allergy status to other antibiotic agents; Z88.2 Allergy status to sulfonamides; Z88.8 Allergy status to other drugs, medicaments and biological substances; Z79.51 Long term (current) use of inhaled steroids; Z79.1 Long term (current) use of non-steroidal anti-inflammatories (NSAID); Z79.899 Other long term (current) drug therapy

== ENCOUNTER → 2024-04-15 | Outpatient (REF) | payer OTHER ==
[2024-04-15 16:32] LABS: BLOOD UREA NITROGEN 9 MG/DL (9-23); CALCIUM LEVEL 8.9 MG/DL (8.5-10.1); CARBON DIOXIDE LEVEL 27 MMOL/L (20-31); CHLORIDE LEVEL 107 MMOL/L (98-107); CREATININE FOR GFR 0.55 MG/DL (0.55-1.30); GLOMERULAR FILTRATION RATE > 60.0 (>60); GLUCOSE, FASTING 91 MG/DL (60-100); POTASSIUM SERUM 4.3 MMOL/L (3.5-5.1); SODIUM LEVEL 139 MMOL/L (136-145)
== END ==
LOC: M LAB REF 12:55
PROVIDERS: ATTEND Nurse Practitioner Family
DX: R73.9 Hyperglycemia, unspecified (principal)

== ENCOUNTER → 2024-04-24 | Outpatient (CLI) | payer OTHER ==
[2024-04-24 12:33] LABS: HEMATOCRIT 38.4 % (36.0-47.0); HEMOGLOBIN 12.6 g/dl (12.0-15.5); MEAN CORPUSCULAR HGB CONC 32.8 g/dl (32.0-36.5); MEAN CORPUSCULAR VOLUME 97.5 fl (80.0-96.0); PLATELET COUNT, AUTOMATED 275 10^3/uL (150-450); RED BLOOD COUNT 3.94 10^6/uL (4.00-5.40); WHITE BLOOD COUNT 10.9 10^3/uL (4.0-10.0)
[2024-04-24 13:35] LABS: HIV 1&2 SCREEN NEGATIVE (NEGATIVE)
[2024-04-24 13:43] LABS: HEPATITIS C VIRUS ABY INDEX < 0.02 INDEX (<0.8)
[2024-04-24 14:36] LABS: GC DNA AMPLIFICATION NEGATIVE (NEGATIVE)
== END ==
LOC: M PLALAB 09:17
PROVIDERS: ATTEND Specialist
DX: Z34.01 Encounter for supervision of normal first pregnancy, first trimester (principal)

== ENCOUNTER 2024-05-08 11:58 | Emergency (ER) | payer OTHER ==
[2024-05-08 13:13] LABS: BASO % 0.3 % (0.0-1.0); EOS % 0.4 % (0.0-3.0); HEMATOCRIT 35.8 % (36.0-47.0); HEMOGLOBIN 12.4 g/dl (12.0-15.5); LYMPH # 1.4 10^3/uL (1.5-5.0); LYMPH % 14.8 % (24.0-44.0); MEAN CORPUSCULAR HEMOGLOBIN 31.6 pg (27.0-33.0); MEAN CORPUSCULAR HGB CONC 34.6 g/dl (32.0-36.5); MEAN CORPUSCULAR VOLUME 91.3 fl (80.0-96.0); MONO # 0.8 10^3/uL (0.0-0.8); MONO % 7.9 % (2.0-8.0); NEUTROPHILS # 7.3 10^3/uL (1.5-8.5); NEUTROPHILS % 76.3 % (36.0-66.0); PLATELET COUNT, AUTOMATED 246 10^3/uL (150-450); RED BLOOD COUNT 3.92 10^6/uL (4.00-5.40); WHITE BLOOD COUNT 9.6 10^3/uL (4.0-10.0)
[2024-05-08 13:47] VITALS: BP 109/61; TEMP 97.9; O2SAT 96
== END 2024-05-08 14:30 | disposition home or self-care (01) ==
LOC: M ED 11:58 → EDBD 11:58 → M ED 14:30
DX: O20.8 Other hemorrhage in early pregnancy (principal); F32.A Depression, unspecified; F41.9 Anxiety disorder, unspecified; F20.9 Schizophrenia, unspecified; K58.9 Irritable bowel syndrome, unspecified; E28.2 Polycystic ovarian syndrome; F12.10 Cannabis abuse, uncomplicated; Z87.891 Personal history of nicotine dependence; Z3A.10 10 weeks gestation of pregnancy; Z79.52 Long term (current) use of systemic steroids; Z79.83 Long term (current) use of bisphosphonates; Z79.899 Other long term (current) drug therapy

== ENCOUNTER 2024-05-14 16:44 | Emergency (ER) | payer OTHER ==
[~2024-05-14] VITALS: Ht 162.6 cm; Wt 55.9 kg
[2024-05-14 17:53] LABS: BASO % 0.3 % (0.0-1.0); EOS # 0.1 10^3/uL (0.0-0.5); EOS % 0.7 % (0.0-3.0); HEMATOCRIT 35.8 % (36.0-47.0); HEMOGLOBIN 12.1 g/dl (12.0-15.5); LYMPH # 1.6 10^3/uL (1.5-5.0); LYMPH % 14.9 % (24.0-44.0); MEAN CORPUSCULAR HEMOGLOBIN 31.9 pg (27.0-33.0); MEAN CORPUSCULAR HGB CONC 33.8 g/dl (32.0-36.5); MEAN CORPUSCULAR VOLUME 94.5 fl (80.0-96.0); MONO # 0.7 10^3/uL (0.0-0.8); MONO % 6.4 % (2.0-8.0); NEUTROPHILS % 77.3 % (36.0-66.0); PLATELET COUNT, AUTOMATED 263 10^3/uL (150-450); RED BLOOD COUNT 3.79 10^6/uL (4.00-5.40); WHITE BLOOD COUNT 10.4 10^3/uL (4.0-10.0)
[2024-05-14 18:09] LABS: BLOOD UREA NITROGEN 10 MG/DL (9-23); CALCIUM LEVEL 9.1 MG/DL (8.5-10.1); CARBON DIOXIDE LEVEL 25 MMOL/L (20-31); CHLORIDE LEVEL 106 MMOL/L (98-107); CREATININE FOR GFR 0.57 MG/DL (0.55-1.30); GLOMERULAR FILTRATION RATE > 60.0 (>60); GLUCOSE, FASTING 85 MG/DL (60-100); SODIUM LEVEL 135 MMOL/L (136-145)
[2024-05-14 18:45] LABS: HCG, SERUM QUANTITATIVE 134398.3 MIU/ML (<4.2)
[2024-05-14 19:41] VITALS: BP 122/56; TEMP 97.4; O2SAT 98
== END 2024-05-14 19:45 | disposition home or self-care (01) ==
LOC: EDBD 16:44 → M ED 16:44
DX: O46.91 Antepartum hemorrhage, unspecified, first trimester (principal); O20.9 Hemorrhage in early pregnancy, unspecified; Z3A.11 11 weeks gestation of pregnancy; O99.511 Diseases of the respiratory system complicating pregnancy, first trimester; O99.611 Diseases of the digestive system complicating pregnancy, first trimester; O99.341 Other mental disorders complicating pregnancy, first trimester; F41.9 Anxiety disorder, unspecified; F32.A Depression, unspecified; Z88.1 Allergy status to other antibiotic agents; Z88.2 Allergy status to sulfonamides; Z88.8 Allergy status to other drugs, medicaments and biological substances; Z79.51 Long term (current) use of inhaled steroids; Z79.1 Long term (current) use of non-steroidal anti-inflammatories (NSAID); Z79.899 Other long term (current) drug therapy

== ENCOUNTER → 2024-05-22 | Outpatient (CLI) | payer OTHER | LOC: M PLALAB 09:11 | PROVIDERS: ATTEND Nurse Practitioner Women's Health | DX: Z34.80 Encounter for supervision of other normal pregnancy, unspecified trimester (principal); Z3A.12 12 weeks gestation of pregnancy ==

== ENCOUNTER → 2024-07-11 | Outpatient (CLI) | payer OTHER, SELFPAY | LOC: M RAD 07:25 | PROVIDERS: ATTEND Obstetrics & Gynecology | DX: Z34.82 Encounter for supervision of other normal pregnancy, second trimester (principal) ==

== ENCOUNTER 2024-08-04 15:24 | Outpatient (CLI) | payer OTHER, SELFPAY ==
[~2024-08-04] VITALS: Ht 165.1 cm; Wt 65.1 kg
[2024-08-04] MEDS ORDERED: PRENTAB9 PO (15:45)
[2024-08-04 15:48] VITALS: BP 115/60
[2024-08-04] MEDS ORDERED: HOME MED LIST COMPLETE! XX SCH (15:50)
[2024-08-04 16:29] LABS: APPEARANCE, URINE HAZY (CLEAR); BACTERIA, URINE AUTO NEGATIVE (NEGATIVE); BILIRUBIN, URINE AUTO NEGATIVE (NEGATIVE); BLOOD, URINE BLOOD NEGATIVE (NEGATIVE); CALCIUM OXALATE CRYSTALS SMALL; COLOR, URINE YELLOW (YELLOW); GLUCOSE, URINE (UA) AUTO 1+ mg/dL (NEGATIVE); KETONE, URINE AUTO TRACE mg/dL (NEGATIVE); LEUKOCYTE ESTERASE, URINE AUTO NEGATIVE (NEGATIVE); MUCUS, URINE SMALL (NEGATIVE); NITRITE, URINE AUTO NEGATIVE (NEGATIVE); PROTEIN, URINE AUTO NEGATIVE (NEGATIVE); RBC, URINE AUTO 3 /HPF (0-3); SPECIFIC GRAVITY URINE AUTO 1.027 (1.002-1.035); SQUAMOUS EPITHELIAL CELL UR AU 2 /HPF (0-6); UROBILINOGEN, URINE AUTO 0.2 mg/dL (0.0-2.0); WBC, URINE AUTO 2 /HPF (0-3)
== END 2024-08-04 17:55 | disposition home or self-care (01) ==
LOC: M LDO 15:24
PROVIDERS: ATTEND Obstetrics & Gynecology
DX: O26.892 Other specified pregnancy related conditions, second trimester (principal); R10.30 Lower abdominal pain, unspecified; Z88.1 Allergy status to other antibiotic agents; Z88.8 Allergy status to other drugs, medicaments and biological substances; Z91.018 Allergy to other foods; Z3A.22 22 weeks gestation of pregnancy
CPT/HCPCS: 59025; 81001; G0463

== ENCOUNTER → 2024-09-13 | Outpatient (CLI) | payer OTHER ==
[~2024-09-13] MED LIST changes: +PRENTAB9 PO
[2024-09-13 14:00] LABS: HEMATOCRIT 35.6 % (36.0-47.0); HEMOGLOBIN 11.1 g/dl (12.0-15.5); MEAN CORPUSCULAR HEMOGLOBIN 30.6 pg (27.0-33.0); MEAN CORPUSCULAR HGB CONC 31.2 g/dl (32.0-36.5); MEAN CORPUSCULAR VOLUME 98.1 fl (80.0-96.0); PLATELET COUNT, AUTOMATED 248 10^3/uL (150-450); RED BLOOD COUNT 3.63 10^6/uL (4.00-5.40); WHITE BLOOD COUNT 10.7 10^3/uL (4.0-10.0)
[2024-09-13 14:29] LABS: GLUCOSE CHALLENGE TEST 1 HOUR 160 MG/DL (LESS THAN 140)
[2024-09-13 15:04] LABS: HIV 1&2 SCREEN NEGATIVE (NEGATIVE)
[2024-09-13 15:12] LABS: HEPATITIS C VIRUS ABY INDEX < 0.02 INDEX (<0.8)
[2024-09-13 16:04] LABS: GC DNA AMPLIFICATION NEGATIVE (NEGATIVE)
== END ==
LOC: M PLALAB 09:09
PROVIDERS: ATTEND Obstetrics & Gynecology
DX: Z34.92 Encounter for supervision of normal pregnancy, unspecified, second trimester (principal)

== ENCOUNTER → 2024-09-23 | Outpatient (CLI) | payer OTHER | LOC: M LAB 07:33 | PROVIDERS: ATTEND Obstetrics & Gynecology | DX: R73.02 Impaired glucose tolerance (oral) (principal); R55 Syncope and collapse ==

== ENCOUNTER → 2024-09-23 | Outpatient (REF) | payer OTHER ==
[2024-09-23 16:57] LABS: AMORPHOUS SEDIMENT SMALL (NEGATIVE); APPEARANCE, URINE TURBID (CLEAR); BACTERIA, URINE AUTO NEGATIVE (NEGATIVE); BILIRUBIN, URINE AUTO NEGATIVE (NEGATIVE); BLOOD, URINE BLOOD NEGATIVE (NEGATIVE); COLOR, URINE YELLOW (YELLOW); GLUCOSE, URINE (UA) AUTO 2+ mg/dL (NEGATIVE); KETONE, URINE AUTO NEGATIVE (NEGATIVE); LEUKOCYTE ESTERASE, URINE AUTO NEGATIVE (NEGATIVE); NITRITE, URINE AUTO NEGATIVE (NEGATIVE); PROTEIN, URINE AUTO NEGATIVE (NEGATIVE); RBC, URINE AUTO 2 /HPF (0-3); SPECIFIC GRAVITY URINE AUTO 1.025 (1.002-1.035); SQUAMOUS EPITHELIAL CELL UR AU 6 /HPF (0-6); UROBILINOGEN, URINE AUTO 0.2 mg/dL (0.0-2.0); WBC, URINE AUTO 0 /HPF (0-3)
[2024-09-23 18:20] LABS: IRON (FE) 125 UG/DL (50-170)
[2024-09-23 18:22] LABS: THYROID STIMULATING HORMONE 0.769 uIU/ML (0.55-4.78)
[2024-09-23 18:23] LABS: FOLATE > 24.0 NG/ML (>5.4); VITAMIN B12 LEVEL 458 PG/ML (211-911)
[2024-09-23 19:03] LABS: HEMOGLOBIN A1c 5.3 % (4.0-6.0)
== END ==
LOC: M LAB REF 16:10
PROVIDERS: ATTEND Nurse Practitioner Family
DX: R55 Syncope and collapse (principal)

== ENCOUNTER → 2024-10-11 | Outpatient (CLI) | payer OTHER | LOC: M WHC 15:04 | PROVIDERS: ATTEND Obstetrics & Gynecology | DX: O24.415 Gestational diabetes mellitus in pregnancy, controlled by oral hypoglycemic drugs (principal); Z3A.32 32 weeks gestation of pregnancy ==

== ENCOUNTER → 2024-10-30 | Outpatient (CLI) | payer OTHER ==
[~2024-10-30] MED LIST changes: +METF-877 PO; +METF500T13 PO
[2024-10-30 16:48] LABS: HEMOGLOBIN A1c 5.4 % (4.0-6.0)
== END ==
LOC: M PLALAB 13:33
PROVIDERS: ATTEND Obstetrics & Gynecology
DX: O24.415 Gestational diabetes mellitus in pregnancy, controlled by oral hypoglycemic drugs (principal)

== ENCOUNTER → 2024-10-31 | Outpatient (CLI) | payer OTHER | LOC: M RAD 11:04 | PROVIDERS: ATTEND Specialist | DX: O24.415 Gestational diabetes mellitus in pregnancy, controlled by oral hypoglycemic drugs (principal); Z3A.35 35 weeks gestation of pregnancy ==

== ENCOUNTER 2024-11-03 23:24 | Inpatient (IN) | payer OTHER ==
[~2024-11-03] VITALS: Ht 162.6 cm; Wt 72.6 kg
[~2024-11-03 23:24] MED LIST changes: -METF-877 PO; -METF500T13 PO
[2024-11-04] VITALS (39 sets, daily range): BP systolic 88–139; BP diastolic 49–84; O2SAT 97–100
[2024-11-04] MEDS ORDERED: METF500T13 PO (01:06)
[2024-11-04] MEDS ORDERED: METF-877 PO (01:06)
[2024-11-04] MEDS: PENICILLIN G POTASSIUM 5 MU IV 5 MU in DEXTROSE 5% (D5W) MINI-BAG PLU 100 ML IV ONE (01:30)
[2024-11-04] MEDS: BETAMETHASONE SOLUSPAN 6MG/ML 5ML VIAL IM SCH (01:33)
[2024-11-04] MEDS: LR 1,000 ML IV SCH (01:38)
[2024-11-04 01:42] LABS: BASO % 0.2 % (0.0-1.0); EOS # 0.2 10^3/uL (0.0-0.5); EOS % 1.5 % (0.0-3.0); HEMATOCRIT 32.5 % (36.0-47.0); HEMOGLOBIN 10.9 g/dl (12.0-15.5); LYMPH % 18.8 % (24.0-44.0); MEAN CORPUSCULAR HEMOGLOBIN 31.6 pg (27.0-33.0); MEAN CORPUSCULAR HGB CONC 33.5 g/dl (32.0-36.5); MEAN CORPUSCULAR VOLUME 94.2 fl (80.0-96.0); MONO # 1.2 10^3/uL (0.0-0.8); MONO % 11.2 % (2.0-8.0); NEUTROPHILS # 7.3 10^3/uL (1.5-8.5); NEUTROPHILS % 67.5 % (36.0-66.0); PLATELET COUNT, AUTOMATED 227 10^3/uL (150-450); RED BLOOD COUNT 3.45 10^6/uL (4.00-5.40); WHITE BLOOD COUNT 10.8 10^3/uL (4.0-10.0)
[2024-11-04 01:55] LABS: AMPHETAMINES URINE REFLEX NEGATIVE (NEGATIVE); BARBITURATES URINE REFLEX NEGATIVE (NEGATIVE); BENZODIAZEPINES URINE REFLEX NEGATIVE (NEGATIVE); COCAINE METABOLITE URINE REFLE NEGATIVE (NEGATIVE)
[2024-11-04 01:56] LABS: CANNABINOIDS URINE REFLEX NEGATIVE (NEGATIVE); METHADONE URINE REFLEX NEGATIVE (NEGATIVE); OPIATES URINE REFLEX NEGATIVE (NEGATIVE); PHENCYCLIDINE URINE REFLEX NEGATIVE (NEGATIVE)
[2024-11-04 01:59] LABS: ALBUMIN 2.4 G/DL (3.2-5.2); ALKALINE PHOSPHATASE 116 U/L (35-104); ALT/SGPT 16 U/L (7.0-40); AST/SGOT 18 U/L (<34); BILIRUBIN,TOTAL 0.2 MG/DL (0.3-1.2); BLOOD UREA NITROGEN 12 MG/DL (9-23); CALCIUM LEVEL 8.8 MG/DL (8.5-10.1); CARBON DIOXIDE LEVEL 21 MMOL/L (20-31); CHLORIDE LEVEL 106 MMOL/L (98-107); CREATININE FOR GFR 0.53 MG/DL (0.55-1.30); GLOMERULAR FILTRATION RATE > 60.0 (>60); GLUCOSE, FASTING 96 MG/DL (60-100); POTASSIUM SERUM 3.9 MMOL/L (3.5-5.1); SODIUM LEVEL 139 MMOL/L (136-145); TOTAL PROTEIN 5.8 G/DL (5.7-8.2)
[2024-11-04 03:43] LABS: HIV 1&2 SCREEN NEGATIVE (NEGATIVE)
[2024-11-04 03:51] LABS: HEPATITIS C VIRUS ABY INDEX 0.12 INDEX (<0.8)
[2024-11-04 03:52] LABS: URIC ACID 3.6 MG/DL (3.1-7.8)
[2024-11-04] MEDS: PEN G POT 3,000,000 UNIT/50 ML 3,000,000 UNIT in IV 1 EA IV SCH (05:45)
[2024-11-04] MEDS ORDERED: NALOXONE INJ 0.4MG/1ML VIAL IV PRN (13:25)
[2024-11-04] MEDS ORDERED: ONDANSETRON 4MG 2ML VIAL IV PRN (13:25)
[2024-11-04] MEDS ORDERED: EPIDURAL/PCA KEYS XX PRN (13:25)
[2024-11-04] MEDS ORDERED: diphenhydrAMINE 50MG/ML VIAL IV PRN (13:25)
[2024-11-04] MEDS: FENTANYL/ROPIVACAINE/NACL BAG 100 ML EPIDURAL SCH (13:52)
[2024-11-04] MEDS: LR 500 ML IV PRN (13:53)
[2024-11-04] MEDS: ePHEDrine SULFATE 25 MG/5 ML(5MG/ML) SYRINGE IVP PRN (13:53)
[2024-11-04] MEDS: OXYTOCIN DRIP 30 UNITS in IV 1 EA IV SCH (15:25)
[2024-11-04] MEDS ORDERED: METHYLERGONOVINE MALEATE 0.2MG/ML 1ML VIAL IM PRN (18:55)
[2024-11-04] MEDS ORDERED: ACETAMINOPHEN 325 MG TAB PO PRN (18:55)
[2024-11-04] MEDS ORDERED: RHOGAM 300MCG (1500IU) INJ IM SCH (18:55)
[2024-11-04] MEDS ORDERED: DIBUCAINE 1% OINTMENT 30GM TOP PRN (18:55)
[2024-11-04] MEDS: ACETAMINOPHEN 500 MG TAB PO PRN (22:07)
[2024-11-05 06:11] VITALS: BP 111/59; O2SAT 98
[2024-11-05] MEDS: PRENATAL VITAMINS CHEWABLE TABLET PO SCH (08:32)
[2024-11-05 18:22] VITALS: BP 109/62; O2SAT 98
[2024-11-06 06:00] VITALS: BP 103/54; O2SAT 98
[2024-11-06] MEDS: MEASLES,MUMPS,RUBELLA VACCINE INJ (MMR-II) SC.IMMUN ONE (09:00)
[2024-11-08 03:49] LABS: ACETONE, URINE NEGATIVE mg/dL (<5); ETHANOL, URINE NEGATIVE mg/dL (<5); ISOPROPANOL, URINE NEGATIVE mg/dL (<5); METHANOL, URINE NEGATIVE mg/dL (<5)
== END 2024-11-06 17:35 | disposition home or self-care (01) | DRG 560 ==
LOC: M LDO 23:24 → M LDI 11-04 00:35 → M OBS 11-04 21:10
PROVIDERS: ADMIT Obstetrics & Gynecology; ATTEND Advanced Practice Midwife
PROC: 10E0XZZ Delivery of Products of Conception, External Approach (ICD-10-PCS; principal; 2024-11-04)
PROC: 0HQ9XZZ Repair Perineum Skin, External Approach (ICD-10-PCS; 2024-11-04)
DX: O42.013 Preterm premature rupture of membranes, onset of labor within 24 hours of rupture, third trimester (principal); O70.0 First degree perineal laceration during delivery; Z3A.35 35 weeks gestation of pregnancy; Z88.0 Allergy status to penicillin; Z88.1 Allergy status to other antibiotic agents; Z88.2 Allergy status to sulfonamides; Z88.8 Allergy status to other drugs, medicaments and biological substances; Z37.0 Single live birth

== ENCOUNTER 2024-11-28 15:20 | Emergency (ER) | payer MEDICAID, OTHER ==
[~2024-11-28] VITALS: Ht 162.6 cm; Wt 64.8 kg
[~2024-11-28 15:20] MED LIST changes: +METF-877 PO; +METF500T13 PO
[2024-11-28 16:03] LABS: KETONE, URINE AUTO RFX NEGATIVE (NEGATIVE); NITRITE, URINE AUTO RFX NEGATIVE (NEGATIVE); RBC, URINE AUTO RFX 0 /HPF (0-3); SQUAM EPITHELIAL CELL UR AURFX 0 /HPF (0-6); WBC, URINE AUTO RFX 0 /HPF (0-3)
[2024-11-28 16:05] LABS: LEUKOCYTE ESTERASE UR AUTO RFX TRACE (NEGATIVE)
[2024-11-28 16:08] LABS: BASO % 0.4 % (0.0-1.0); EOS # 0.1 10^3/uL (0.0-0.5); EOS % 0.9 % (0.0-3.0); HEMOGLOBIN 12.7 g/dl (12.0-15.5); LYMPH # 1.8 10^3/uL (1.5-5.0); LYMPH % 25.2 % (24.0-44.0); MEAN CORPUSCULAR HEMOGLOBIN 30.4 pg (27.0-33.0); MEAN CORPUSCULAR HGB CONC 31.8 g/dl (32.0-36.5); MEAN CORPUSCULAR VOLUME 95.7 fl (80.0-96.0); MONO # 0.6 10^3/uL (0.0-0.8); MONO % 8.4 % (2.0-8.0); NEUTROPHILS # 4.6 10^3/uL (1.5-8.5); PLATELET COUNT, AUTOMATED 328 10^3/uL (150-450); RED BLOOD COUNT 4.18 10^6/uL (4.00-5.40)
[2024-11-28 16:36] LABS: LIPASE 32 U/L (12-53)
[2024-11-28 16:38] LABS: ALBUMIN 3.5 G/DL (3.2-5.2); ALKALINE PHOSPHATASE 116 U/L (35-104); ALT/SGPT 35 U/L (7.0-40); AST/SGOT 19 U/L (<34); BILIRUBIN,DIRECT < 0.1 MG/DL (<0.4); BILIRUBIN,TOTAL 0.4 MG/DL (0.3-1.2); BLOOD UREA NITROGEN 11 MG/DL (9-23); CALCIUM LEVEL 9.3 MG/DL (8.5-10.1); CARBON DIOXIDE LEVEL 25 MMOL/L (20-31); CHLORIDE LEVEL 107 MMOL/L (98-107); CREATININE FOR GFR 0.66 MG/DL (0.55-1.30); GLOMERULAR FILTRATION RATE > 60.0 (>60); GLUCOSE, FASTING 101 MG/DL (60-100); POTASSIUM SERUM 4.1 MMOL/L (3.5-5.1); SODIUM LEVEL 142 MMOL/L (136-145); TOTAL PROTEIN 6.7 G/DL (5.7-8.2)
[2024-11-28] MEDS: ONDANSETRON 4MG ORAL DISINTEGRATING TAB PO ONE (17:40)
[2024-11-28] MEDS ORDERED: PROT20TA11 PO (18:44)
[2024-11-28] MEDS ORDERED: ONDA-282 PO (18:44)
[2024-11-28] MEDS: PANTOPRAZOLE 20 MG TAB PO ONE (19:03)
[2024-11-28 19:06] VITALS: BP 118/59; TEMP 98.1; O2SAT 100
== END 2024-11-28 19:08 | disposition home or self-care (01) ==
LOC: M ED 15:20
DX: R11.2 Nausea with vomiting, unspecified (principal); E28.2 Polycystic ovarian syndrome; K58.9 Irritable bowel syndrome, unspecified; F20.9 Schizophrenia, unspecified; Z88.1 Allergy status to other antibiotic agents; Z88.2 Allergy status to sulfonamides; Z88.8 Allergy status to other drugs, medicaments and biological substances; Z91.018 Allergy to other foods; Z79.51 Long term (current) use of inhaled steroids; Z79.810 Long term (current) use of selective estrogen receptor modulators (SERMs); Z79.899 Other long term (current) drug therapy

== ENCOUNTER → 2024-12-06 | Outpatient (REF) | payer OTHER, MEDICAID ==
[~2024-12-06] MED LIST changes: +PROT20TA11 PO
[2024-12-06 19:05] LABS: BLOOD UREA NITROGEN 11 MG/DL (9-23); CALCIUM LEVEL 9.3 MG/DL (8.5-10.1); CARBON DIOXIDE LEVEL 26 MMOL/L (20-31); CHLORIDE LEVEL 104 MMOL/L (98-107); CREATININE FOR GFR 0.78 MG/DL (0.55-1.30); GLOMERULAR FILTRATION RATE > 60.0 (>60); GLUCOSE, FASTING 79 MG/DL (60-100); POTASSIUM SERUM 4.2 MMOL/L (3.5-5.1); SODIUM LEVEL 142 MMOL/L (136-145); THYROID STIMULATING HORMONE 0.495 uIU/ML (0.55-4.78)
[2024-12-06 19:15] LABS: HEMOGLOBIN A1c 5.8 % (4.0-6.0)
== END ==
LOC: M LAB REF 17:34
PROVIDERS: ATTEND Nurse Practitioner Family
DX: Z39.2 Encounter for routine postpartum follow-up (principal)

== ENCOUNTER 2024-12-22 15:15 | Emergency (ER) | payer MEDICAID, OTHER ==
[~2024-12-22] VITALS: Ht 162.6 cm; Wt 64.1 kg
[2024-12-22 15:21] VITALS: BP 126/68; TEMP 97.8; O2SAT 98
[2024-12-22] MEDS ORDERED: DESV25TA PO (16:19)
== END 2024-12-22 16:33 | disposition home or self-care (01) ==
LOC: M ED 15:15
DX: F53.0 Postpartum depression (principal); F20.9 Schizophrenia, unspecified; E28.2 Polycystic ovarian syndrome; Z88.1 Allergy status to other antibiotic agents; Z88.8 Allergy status to other drugs, medicaments and biological substances; Z79.51 Long term (current) use of inhaled steroids; Z79.810 Long term (current) use of selective estrogen receptor modulators (SERMs); Z79.899 Other long term (current) drug therapy

== ENCOUNTER 2025-03-27 17:55 | Emergency (ER) | payer OTHER ==
[~2025-03-27] VITALS: Ht 162.6 cm; Wt 59.0 kg
[~2025-03-27 17:55] MED LIST changes: +DESV25TA PO
[2025-03-27 17:58] VITALS: TEMP 96.9
[2025-03-27 19:17] LABS: BASO # 0.0 10^3/uL (0.0-0.2); BASO % 0.5 % (0.0-1.0); EOS # 0.1 10^3/uL (0.0-0.5); EOS % 1.7 % (0.0-3.0); LYMPH # 2.6 10^3/uL (1.5-5.0); LYMPH % 33.8 % (24.0-44.0); MONO # 0.5 10^3/uL (0.0-0.8); MONO % 6.3 % (2.0-8.0); NEUTROPHILS # 4.4 10^3/uL (1.5-8.5); NEUTROPHILS % 57.4 % (36.0-66.0); PLATELET COUNT, AUTOMATED 280 10^3/uL (150-450)
[2025-03-27 19:18] LABS: INR 1.0
[2025-03-27 19:24] LABS: HCG, SERUM QUALITATIVE NEGATIVE (NEGATIVE)
[2025-03-27 19:25] LABS: ALT/SGPT 24 U/L (7.0-40); AST/SGOT 22 U/L (<34); CALCIUM LEVEL 9.3 MG/DL (8.5-10.1); CARBON DIOXIDE LEVEL 28 MMOL/L (20-31); CHLORIDE LEVEL 101 MMOL/L (98-107); CK-MB VALUE MASS < 1.0 NG/ML (<3.6); CPK CREATINE PHOSPHOKINASE 53 U/L (34-145); CREATININE FOR GFR 0.75 MG/DL (0.55-1.30); GLOMERULAR FILTRATION RATE > 90.0 (>60); MAGNESIUM LEVEL 2.0 MG/DL (1.8-2.4); POTASSIUM SERUM 3.3 MMOL/L (3.5-5.1); SODIUM LEVEL 141 MMOL/L (136-145)
[2025-03-27 19:27] LABS: FREE T4 1.03 NG/DL (0.89-1.76)
[2025-03-27 19:51] LABS: KETONE, URINE AUTO RFX NEGATIVE (NEGATIVE); LEUKOCYTE ESTERASE UR AUTO RFX NEGATIVE (NEGATIVE); NITRITE, URINE AUTO RFX NEGATIVE (NEGATIVE); RBC, URINE AUTO RFX 1 /HPF (0-3); SQUAM EPITHELIAL CELL UR AURFX 6 /HPF (0-6); WBC, URINE AUTO RFX 2 /HPF (0-3)
[2025-03-27 20:25] LABS: CK-MB VALUE MASS < 1.0 NG/ML (<3.6)
[2025-03-27 20:29] LABS: CPK CREATINE PHOSPHOKINASE 77 U/L (34-145)
[2025-03-27 20:30] VITALS: BP 99/59; O2SAT 97
== END 2025-03-27 20:41 | disposition left against medical advice (07) ==
LOC: M ED 17:55
DX: R07.89 Other chest pain (principal); R10.9 Unspecified abdominal pain; R94.31 Abnormal electrocardiogram [ECG] [EKG]; F17.210 Nicotine dependence, cigarettes, uncomplicated; Z88.1 Allergy status to other antibiotic agents; Z88.8 Allergy status to other drugs, medicaments and biological substances; Z91.018 Allergy to other foods; Z79.51 Long term (current) use of inhaled steroids; Z79.899 Other long term (current) drug therapy; Z79.810 Long term (current) use of selective estrogen receptor modulators (SERMs); Z53.9 Procedure and treatment not carried out, unspecified reason

== ENCOUNTER 2025-05-01 10:04 | Emergency (ER) | payer OTHER ==
[~2025-05-01] VITALS: Ht 162.6 cm; Wt 56.3 kg
[~2025-05-01 10:04] MED LIST changes: -ALBU8.5H; +ALBU8.5H INH
[2025-05-01] MEDS ORDERED: DESV25TA PO (10:43)
[2025-05-01] MEDS ORDERED: HOME MED LIST COMPLETE! XX SCH (10:45)
[2025-05-01] MEDS: ONDANSETRON 4MG 2ML VIAL IV ONE (11:24)
[2025-05-01 11:46] LABS: BASO # 0.0 10^3/uL (0.0-0.2); BASO % 0.7 % (0.0-1.0); EOS # 0.1 10^3/uL (0.0-0.5); EOS % 2.6 % (0.0-3.0); LYMPH # 1.7 10^3/uL (1.5-5.0); LYMPH % 30.6 % (24.0-44.0); MONO # 0.5 10^3/uL (0.0-0.8); MONO % 9.6 % (2.0-8.0); NEUTROPHILS # 3.0 10^3/uL (1.5-8.5); NEUTROPHILS % 56.3 % (36.0-66.0); PLATELET COUNT, AUTOMATED 232 10^3/uL (150-450)
[2025-05-01 11:48] LABS: KETONE, URINE AUTO RFX TRACE mg/dL (NEGATIVE); MUCUS, URINE RFX LARGE (NEGATIVE); NITRITE, URINE AUTO RFX NEGATIVE (NEGATIVE); RBC, URINE AUTO RFX 2 /HPF (0-3); SQUAM EPITHELIAL CELL UR AURFX 9 /HPF (0-6)
[2025-05-01 11:59] LABS: LEUKOCYTE ESTERASE UR AUTO RFX 1+ (NEGATIVE); WBC, URINE AUTO RFX 17 /HPF (0-3)
[2025-05-01 12:02] LABS: CALCIUM LEVEL 8.9 MG/DL (8.5-10.1); CARBON DIOXIDE LEVEL 31 MMOL/L (20-31); CHLORIDE LEVEL 106 MMOL/L (98-107); CREATININE FOR GFR 0.75 MG/DL (0.55-1.30); GLOMERULAR FILTRATION RATE > 90.0 (>60); POTASSIUM SERUM 4.7 MMOL/L (3.5-5.1); SODIUM LEVEL 148 MMOL/L (136-145)
[2025-05-01 12:07] LABS: HCG, SERUM QUALITATIVE NEGATIVE (NEGATIVE)
[2025-05-01] MEDS ORDERED: CIPR250T26 PO (12:27)
[2025-05-01 12:53] VITALS: BP 105/61; TEMP 97.8; O2SAT 100
== END 2025-05-01 12:55 | disposition home or self-care (01) ==
LOC: M ED 10:04
DX: N39.0 Urinary tract infection, site not specified (principal); E87.0 Hyperosmolality and hypernatremia; E28.2 Polycystic ovarian syndrome; F17.210 Nicotine dependence, cigarettes, uncomplicated; F12.10 Cannabis abuse, uncomplicated; F10.10 Alcohol abuse, uncomplicated; Z88.1 Allergy status to other antibiotic agents; Z88.8 Allergy status to other drugs, medicaments and biological substances; Z91.018 Allergy to other foods; Z79.51 Long term (current) use of inhaled steroids; Z79.899 Other long term (current) drug therapy; Z79.810 Long term (current) use of selective estrogen receptor modulators (SERMs)
CPT/HCPCS: 80048; 81001; 84703; 85025; 87086; 96374; 99284; J2405

== ENCOUNTER → 2025-05-13 | Outpatient (CLI) | payer OTHER ==
[~2025-05-13] MED LIST changes: +CIPR250T26 PO
== END ==
LOC: M RAD 11:43
PROVIDERS: ATTEND Advanced Practice Midwife
DX: R10.2 Pelvic and perineal pain (principal); N88.8 Other specified noninflammatory disorders of cervix uteri; R93.89 Abnormal findings on diagnostic imaging of other specified body structures; N80.9 Endometriosis, unspecified

== ENCOUNTER 2025-06-06 10:13 | Day surgery (SDC) | payer OTHER ==
[~2025-06-06] VITALS: Ht 162.6 cm; Wt 54.0 kg
[~2025-06-06 10:13] MED LIST changes: -IBUP-1022 PO; +IBUP600T42 PO
[2025-06-06] MEDS ORDERED: LIDOCAINE 2% 100 MG/5 ML SDV (FOR ANES.) As Ordered ONE (10:46)
[2025-06-06 11:05] VITALS: TEMP 97
[2025-06-06 11:20] VITALS: BP 92/48; O2SAT 99
== END 2025-06-06 11:23 | disposition home or self-care (01) ==
LOC: M OPP 10:13
PROVIDERS: ATTEND Internal Medicine Gastroenterology
DX: R10.11 Right upper quadrant pain (principal); Z88.1 Allergy status to other antibiotic agents; Z88.2 Allergy status to sulfonamides; Z88.8 Allergy status to other drugs, medicaments and biological substances; Z91.011 Allergy to milk products; Z79.899 Other long term (current) drug therapy; J45.909 Unspecified asthma, uncomplicated; F17.290 Nicotine dependence, other tobacco product, uncomplicated
CPT/HCPCS: 43239; 88305; J3010

== ENCOUNTER 2025-06-19 07:53 | Day surgery (SDC) | payer OTHER ==
[~2025-06-19] VITALS: Ht 162.6 cm; Wt 52.8 kg
[2025-06-19 09:17] VITALS: TEMP 97.6; O2SAT 100
[2025-06-19 09:32] VITALS: BP 105/64
== END 2025-06-19 09:38 | disposition home or self-care (01) ==
LOC: M OPP 07:53
PROVIDERS: ATTEND Internal Medicine Gastroenterology
DX: Z86.0101 Personal history of adenomatous and serrated colon polyps (principal); Z88.1 Allergy status to other antibiotic agents; Z88.2 Allergy status to sulfonamides; Z88.8 Allergy status to other drugs, medicaments and biological substances; Z79.899 Other long term (current) drug therapy

== ENCOUNTER → 2025-07-09 | Outpatient (CLI) | payer OTHER ==
[~2025-07-09] MED LIST changes: +CARDIAC STRESS TEST RESCUE BOX 1 KIT EA XX ONE
== END ==
LOC: M CARPUL 09:04
PROVIDERS: ATTEND Internal Medicine Cardiovascular Disease
DX: R00.2 Palpitations (principal); R07.9 Chest pain, unspecified; R06.02 Shortness of breath

== ENCOUNTER → 2025-07-25 | Outpatient (REF) | payer OTHER ==
[~2025-07-25] MED LIST changes: -CARDIAC STRESS TEST RESCUE BOX 1 KIT EA XX ONE
[2025-07-25 10:58] LABS: APPEARANCE, URINE HAZY (CLEAR); BACTERIA, URINE AUTO NEGATIVE (NEGATIVE); BILIRUBIN, URINE AUTO NEGATIVE (NEGATIVE); BLOOD, URINE BLOOD 3+ (NEGATIVE); GLUCOSE, URINE (UA) AUTO NEGATIVE (NEGATIVE); KETONE, URINE AUTO NEGATIVE (NEGATIVE); LEUKOCYTE ESTERASE, URINE AUTO 2+ (NEGATIVE); MUCUS, URINE SMALL (NEGATIVE); NITRITE, URINE AUTO NEGATIVE (NEGATIVE); PROTEIN, URINE AUTO 1+ mg/dL (NEGATIVE); RBC, URINE AUTO 42 /HPF (0-3); SPECIFIC GRAVITY URINE AUTO 1.008 (1.002-1.035); SQUAMOUS EPITHELIAL CELL UR AU 0 /HPF (0-6); UROBILINOGEN, URINE AUTO 0.2 mg/dL (0.0-2.0); WBC, URINE AUTO 173 /HPF (0-3)
== END ==
LOC: M SFHCWAGY 10:13
PROVIDERS: ATTEND Obstetrics & Gynecology
DX: R35.0 Frequency of micturition (principal)

== ENCOUNTER 2025-08-27 11:48 | Emergency (ER) | payer OTHER ==
[~2025-08-27] VITALS: Ht 162.6 cm; Wt 51.6 kg
[2025-08-27 11:52] VITALS: TEMP 98.7
[2025-08-27 12:26] LABS: BASO # 0.0 10^3/uL (0.0-0.2); BASO % 0.6 % (0.0-1.0); EOS # 0.1 10^3/uL (0.0-0.5); EOS % 2.2 % (0.0-3.0); LYMPH # 1.6 10^3/uL (1.5-5.0); LYMPH % 28.6 % (24.0-44.0); MONO # 0.8 10^3/uL (0.0-0.8); MONO % 13.9 % (2.0-8.0); NEUTROPHILS # 3.0 10^3/uL (1.5-8.5); NEUTROPHILS % 54.5 % (36.0-66.0); PLATELET COUNT, AUTOMATED 242 10^3/uL (150-450)
[2025-08-27 12:34] LABS: URINE PREG TEST NEGATIVE (NEGATIVE)
[2025-08-27 12:44] LABS: APPEARANCE, URINE HAZY (CLEAR); BACTERIA, URINE AUTO NEGATIVE (NEGATIVE); BILIRUBIN, URINE AUTO NEGATIVE (NEGATIVE); BLOOD, URINE BLOOD NEGATIVE (NEGATIVE); GLUCOSE, URINE (UA) AUTO NEGATIVE (NEGATIVE); KETONE, URINE AUTO TRACE mg/dL (NEGATIVE); LEUKOCYTE ESTERASE, URINE AUTO NEGATIVE (NEGATIVE); MUCUS, URINE LARGE (NEGATIVE); NITRITE, URINE AUTO NEGATIVE (NEGATIVE); PROTEIN, URINE AUTO 1+ mg/dL (NEGATIVE); RBC, URINE AUTO 0 /HPF (0-3); SPECIFIC GRAVITY URINE AUTO 1.028 (1.002-1.035); SQUAMOUS EPITHELIAL CELL UR AU 8 /HPF (0-6); UROBILINOGEN, URINE AUTO 2.0 mg/dL (0.0-2.0); WBC, URINE AUTO 3 /HPF (0-3)
[2025-08-27 12:56] LABS: CALCIUM LEVEL 8.4 MG/DL (8.5-10.1); CARBON DIOXIDE LEVEL 30 MMOL/L (20-31); CHLORIDE LEVEL 107 MMOL/L (98-107); CREATININE FOR GFR 0.83 MG/DL (0.55-1.30); GLOMERULAR FILTRATION RATE > 90.0 (>60); POTASSIUM SERUM 3.8 MMOL/L (3.5-5.1); SODIUM LEVEL 145 MMOL/L (136-145)
[2025-08-27 12:57] LABS: HCG, SERUM QUALITATIVE NEGATIVE (NEGATIVE)
[2025-08-27 18:30] VITALS: BP 108/60; O2SAT 98
== END 2025-08-27 18:45 | disposition home or self-care (01) ==
LOC: EDBD 11:48 → M ED 11:48
DX: N92.0 Excessive and frequent menstruation with regular cycle (principal); E28.2 Polycystic ovarian syndrome; Z88.1 Allergy status to other antibiotic agents; Z88.8 Allergy status to other drugs, medicaments and biological substances; Z91.018 Allergy to other foods; Z79.51 Long term (current) use of inhaled steroids; Z79.810 Long term (current) use of selective estrogen receptor modulators (SERMs)